=== PATIENT | female | born 1935 | race African-American/Black ===

== ENCOUNTER 2017-08-18 10:27 | Emergency (ER) | payer OTHER ==
[2017-08-18 10:49] VITALS: BP 138/80; PULSE 98; TEMP 97.9; BMI 23.8
--- NOTE | 2017-08-18 11:18 | PDOC ---
History of Present Illness - General Chief Complaint: Injury Stated Complaint: RT ANKLE PAIN Time Seen by Provider: 08/18/17 10:53 History Source: Patient Exam Limitations: No Limitations - History of Present Illness Initial Comments: 08/18/17 11:13 Patient came with daughter for evaluation of right ankle and leg pain. States twisted ankle 2 days ago. Was seen at Dr. Le's office, x-ray was taken and noted to have a distal fibular fracture. Was instructed to follow-up with orthopedist whom they called and were given appointment for 2 weeks. 08/18/17 12:08 Occurred: reports: yesterday Severity: reports: mild, moderate Pain Location: reports: none Method of Injury: Yes: unknown Modifying Factors: improves with: None, cold therapy Loss of Consciousness: no loss of consciousness Associated Symptoms (Fall): denies symptoms Past History - Travel Traveled outside of the country in the last 30 days: No Close contact w/someone who was outside of country & ill: No - Past Medical History Allergies/Adverse Reactions: Allergies Allergy/AdvReac Type Severity Reaction Status Date / Time No Known Drug Allergies Allergy Verified 08/18/17 10:44 Home Medications: Ambulatory Orders Aspirin Coated [Ecotrin] 81 mg PO DAILY 04/16/12 Amlodipine/Valsartan/Hcthiazid [Ztozn-Jvggw-Tzor 10-160-25 mg] 1 each PO DAILY 07/18/15 Oxybutynin Chloride 5 mg PO DAILY 07/18/15 Cholecalciferol (Vitamin D3) [Vitamin D] 1,000 unit PO DAILY 11/14/15 Cyanocobalamin [Vitamin B12 -] 1,000 mcg PO DAILY 11/14/15 Memantine HCl [Namenda Xr] 28 mg PO HS 11/14/15 Anemia: No Asthma: No Cancer: No Cardiac Disorders: No CVA: No COPD: No CHF: No Dementia: No Diabetes: No GI Disorders: No Disorders: No HTN: Yes Hypercholesterolemia: No Liver Disease: No Seizures: No Thyroid Disease: No - Immunization History Immunization Up to Date: Yes (FLU) - Suicide/Smoking/Psychosocial Hx Smoking Status: No Smoking History: Never smoked Number of Cigarettes Smoked Daily: 0 Hx Alcohol Use: No Drug/Substance Use Hx: No Substance Use Type: None Trauma Specific PMHX - Complaint Specific PMHX Back Injury: No Neck Injury: No Review of Systems - Review of Systems Able to Perform ROS?: Yes Is the patient limited Cambodian proficient: Yes Constitutional: Yes: Symptoms Reported, See HPI, Malaise HEENTM: No: Symptoms Reported Musculoskeletal: Yes: Symptoms Reported, See HPI, Joint Pain, Joint Swelling, Joint Stiffness Integumentary: Yes: Symptoms Reported Neurological: Yes: Symptoms reported, See HPI. No: Numbness All Other Systems: Reviewed and Negative *Physical Exam - Vital Signs Last Vital Signs Temp Pulse Resp BP Pulse Ox 97.9 F 98 H 17 138/80 99 08/18/17 10:44 08/18/17 10:44 08/18/17 10:44 08/18/17 10:44 08/18/17 10:44 - Physical Exam General Appearance: Yes: Nourished, Appropriately Dressed, Apparent Distress HEENT: positive: JOSSY, Normal ENT Inspection, TMs Normal, Pharynx Normal Neck: positive: Supple. negative: Tender, Lymphadenopathy (R) Respiratory/Chest: positive: Lungs Clear, Normal Breath Sounds Gastrointestinal/Abdominal: positive: Soft. negative: Normal Bowel Sounds Musculoskeletal: positive: Normal Inspection, Decreased Range of Motion Extremity: positive: Normal Capillary Refill, Normal Range of Motion, Tender, Swelling Integumentary: positive: Swelling, Ecchymosis, Bruising Neurologic: positive: electroless plater II-XII NML intact, Fully Oriented, Alert, Normal Mood/ Affect, Normal Response, Motor Strength 5/5 ED Treatment Course - RADIOLOGY Radiology Studies Ordered: Category Date Time Status ANKLE-RIGHT [RAD] Stat Radiology 08/18/17 11:09 Ordered Progress Note - Progress Note Progress Note: X-ray reveals distal fibular fracture with what seems to be some changes in the ankle mortise. Case was discussed with Dr. Medina who for further treatment including casting and walker instructions. Patient was discharged here in via wheelchair was taken to Dr. Marcum office for definitive *DC/Admit/Observation/Transfer Diagnosis at time of Disposition: Fracture of distal end of fibula Qualifiers: Encounter type: initial encounter Fracture type: closed Fracture morphology: other fracture Laterality: right Qualified Code(s): S82.831A - Other fracture of upper and lower end of right fibula, initial encounter for closed fracture - Discharge Dispostion Disposition: HOME Condition at time of disposition: Stable Admit: No - Referrals Referrals: Mimi,Amanuel, MD [Primary Care Provider] - Zachary Medina MD [Staff Physician] - - Patient Instructions Printed Discharge Instructions: DI for Ankle Fracture Additional Instructions: Avoid heavy lifting or exercise until pain and swelling is resolved or until further directed Keep area highly elevated to reduce swelling Use splints/Jose Angel wrap as directed Followup with orthopedist when directed if significantly improved may wait one week for followup with orthopedist May use ibuprofen 2-200 mg tablets every 6 hours as needed for pain - Post Discharge Activity
== END 2017-08-18 12:08 | disposition home or self-care (01) ==
LOC: JERFT 10:27
PROC: 2W3QX1Z Immobilization of Right Lower Leg using Splint (ICD-10-PCS; principal; 2017-08-18)
DX: S82.831D Other fracture of upper and lower end of right fibula, subsequent encounter for closed fracture with routine healing (principal); X50.1XXD Overexertion from prolonged static or awkward postures, subsequent encounter
CPT/HCPCS: 73610-TC-RT-FY; 99281-25

== ENCOUNTER 2018-07-05 00:23 | Inpatient (IN) | payer OTHER ==
[2018-07-05 00:53] VITALS: BMI 26.6
--- NOTE | 2018-07-05 01:06 | PDOC ---
Attending Attestation - HPI HPI: 07/05/18 01:42 The patient is a 82 year old female, with a significant past medical history of hypertension, rheumatoid arthritis, who presents to the emergency department with, a week of a cough and intermittent fevers. She denies recent headache or dizziness. She denies recent nausea, vomit, diarrhea or constipation. She denies recent dysuria, frequency, urgency or hematuria. She denies recent chest pain or shortness of breath. Allergies: NKDA Primary Care Physician: Dr. Le - Physicial Exam PE: 07/05/18 01:43 Agree with resident exam. <Nadia Haskins - Last Filed: 07/05/18 01:42> - Resident Resident Name: Lino Lamar) - ED Attending Attestation I have performed the following: I have examined & evaluated the patient, The case was reviewed & discussed with the resident, I agree w/resident's findings & plan - Critical Care Time Total Critical Care Time: 40 Critical Care Statement: The care of this patient involved high complexity decision making to prevent further life threatening deterioration of the patient 's condition and/or to evaluate & treat vital organ system(s) failure or risk of failure. - Medical Decision Making 07/05/18 03:37 82-year-old female with fevers and cough Labs consistent with urinary tract infection Patient will be admitted for sepsis, IV antibiotics initiated as well as IV fluids <Esthela Flores - Last Filed: 07/05/18 03:43> Attestations - Attestations 07/05/18 01:43 Documentation prepared by Nadia Haskins, acting as medical lab tech instructor for Esthela Flores DO. <Nadia Haskins - Last Filed: 07/05/18 01:42>
[2018-07-05] MEDS ORDERED: ACETAMINOPHEN 1000 MG/100 ML VIAL (NON FORMULARY) IVPB ONE (01:09)
[2018-07-05] MEDS ORDERED: ACETAMINOPHEN INJECTION 100 ML IVPB ONE (01:27)
[2018-07-05 01:35] LABS: VENOUS PH 7.39 (7.32-7.42); VENOUS PO2 13.4 mmHg (28-48)
[2018-07-05 01:36] LABS: BASO % 1.2 % (0-2.0); EOS % 3.1 % (0-4.5); HEMATOCRIT 34.1 % (32.4-45.2); HEMOGLOBIN 11.9 GM/dL (10.7-15.3); LYMPH % 24.5 % (8-40); MCH 34.2 pg (25.7-33.7); MCHC 34.8 g/dl (32.0-36.0); MEAN CELL VOLUME 98.5 fl (80-96); MEAN PLT VOLUME 8.4 fl (7.5-11.1); MONO % 7.4 % (3.8-10.2); NEUT % 63.8 % (42.8-82.8); PLATELET COUNT 304 K/MM3 (134-434); RBC 3.47 M/mm3 (3.60-5.2); RDW 15.4 % (11.6-15.6); WHITE BLOOD COUNT 9.8 K/mm3 (4.0-10.0)
[2018-07-05 01:47] LABS: INR 1.04 (0.83-1.09); PROTHROMBIN TIME (PATIENT) 12.3 SEC (9.7-13.0)
[2018-07-05 01:50] LABS: ACTIVATED PTT 31.9 SECONDS (25.2-36.5)
[2018-07-05 01:55] LABS: URINE APPEARANCE CLEAR; URINE BILIRUBIN NEGATIVE (<2.0 mg/dL); URINE COLOR LTYELLOW; URINE GLUCOSE (UA) NEGATIVE (NEGATIVE); URINE KETONE NEGATIVE (NEGATIVE); URINE LEUK ESTERASE 3+ (NEGATIVE); URINE NITRITE NEGATIVE (NEGATIVE); URINE PROTEIN NEGATIVE (NEGATIVE); URINE UROBILINOGEN NEGATIVE mg/dL (0.2-1.0)
[2018-07-05 01:55] LABS: ALBUMIN 3.5 g/dl (3.4-5.0); ALK PHOS 75 U/L (45-117); ANION GAP 3 MMOL/L (8-16); BILIRUBIN,TOTAL 0.3 mg/dL (0.2-1); BLOOD UREA NITROGEN 16 mg/dL (7-18); CALCIUM 9.4 mg/dL (8.5-10.1); CHLORIDE 98 mmol/L (98-107); CO2 34 mmol/L (21-32); CREATININE 1.3 mg/dL (0.55-1.3); GLUCOSE,RANDOM 97 mg/dL (74-106); POTASSIUM 4.4 mmol/L (3.5-5.1); SGOT/AST 20 U/L (15-37); SGPT/ALT 32 U/L (13-61); SODIUM 135 mmol/L (136-145); TOT PROT 7.6 g/dl (6.4-8.2)
[2018-07-05 02:06] LABS: EPI CELLS RARE /HPF (FEW); URINE HYALINE CAST 1 /lpf
--- NOTE | 2018-07-05 02:16 | PDOC ---
History of Present Illness - General Chief Complaint: SIRS, Suspected/Possible Stated Complaint: FEVER/WEAKNESS Time Seen by Provider: 07/05/18 01:05 History Source: Patient, Family Exam Limitations: No Limitations - History of Present Illness Initial Comments: 07/05/18 02:03 The patient is an 82F with a PMH of HTN, mild dementia, and RA who presents to the ER with complaints of fever. The patient states that she's had intermittent fevers x 1.5 weeks with a cough. She denies CP, SOB, nausea, vomiting, dyusuria , hematuria, chills. She denies any other symptoms. Past History - Past Medical History Allergies/Adverse Reactions: Allergies Allergy/AdvReac Type Severity Reaction Status Date / Time No Known Drug Allergies Allergy Intermediate Verified 07/05/18 01:55 Home Medications: Ambulatory Orders Aspirin Coated [Ecotrin] 81 mg PO DAILY 04/16/12 Amlodipine/Valsartan/Hcthiazid [Cqwed-Nizbi-Fvwp 10-160-25 mg] 1 each PO DAILY 07/18/15 Cholecalciferol (Vitamin D3) [Vitamin D] 1,000 unit PO DAILY 11/14/15 Cyanocobalamin [Vitamin B12 -] 1,000 mcg PO DAILY 11/14/15 Donepezil HCl [Aricept -] 5 mg PO DAILY 12/04/17 Imipramine HCl 50 mg PO DAILY 12/04/17 Meloxicam 15 mg PO DAILY 12/04/17 Methotrexate Sodium [Methotrexate] 20 mg PO WEEKLY 12/04/17 Atorvastatin Ca [Lipitor] 10 mg PO HS 07/05/18 Clopidogrel Bisulfate [Plavix] 75 mg PO DAILY 07/05/18 Losartan Potassium 25 mg PO DAILY 07/05/18 Metoprolol Tartrate 25 mg PO DAILY 07/05/18 Oxybutynin [Oxytrol] 1 each TD DAILY 07/05/18 Anemia: No Asthma: No Cancer: No Cardiac Disorders: No CVA: No COPD: No CHF: No Dementia: No Diabetes: No GI Disorders: No Disorders: No HTN: Yes Hypercholesterolemia: No Liver Disease: No Seizures: No Thyroid Disease: No - Immunization History Immunization Up to Date: Yes (FLU) - Suicide/Smoking/Psychosocial Hx Smoking Status: No Smoking History: Unknown if ever smoked Have you smoked in the past 12 months: No Number of Cigarettes Smoked Daily: 0 Hx Alcohol Use: No Drug/Substance Use Hx: No Substance Use Type: None Review of Systems - Review of Systems Able to Perform ROS?: Yes Comments:: 07/05/18 02:24 GENERAL/CONSTITUTIONAL: Positive for fever. No chills. No weakness. HEAD, EYES, EARS, NOSE AND THROAT: No change in vision. No ear pain or discharge. No sore throat. CARDIOVASCULAR: No chest pain, palpitations, or lightheadedness. RESPIRATORY: Positive for cough. No wheezing, shortness of breath, or hemoptysis. GASTROINTESTINAL: No nausea, vomiting, diarrhea, constipation, or abdominal pain. GENITOURINARY: No dysuria, frequency, hematuria, or change in urination. MUSCULOSKELETAL: No joint or muscle swelling or pain. No neck or back pain. SKIN: No rash or lesions. NEUROLOGIC: No headache, numbness, tingling, focal weakness, loss of consciousness, or change in strength/sensation. Is the patient limited Slovak proficient: No *Physical Exam - Vital Signs Last Vital Signs Temp Pulse Resp BP Pulse Ox 99.1 F 109 H 16 127/88 99 07/05/18 00:39 07/05/18 00:39 07/05/18 00:39 07/05/18 00:39 07/05/18 00:39 - Physical Exam Comments: 07/05/18 02:32 GENERAL: Well developed, well nourished. Awake and alert. No acute distress. HEENT: Normocephalic, atraumatic. Hearing grossly normal. Moist mucous membranes. PERRLA, EOMI. No conjunctival pallor. NECK: Supple. Full ROM. No JVD. CARDIOVASCULAR: Regular rate and rhythm. No murmurs, rubs, or gallops. PULMONARY: No evidence of respiratory distress. Lungs clear to auscultation bilaterally. No wheezing, rales or rhonchi. ABDOMINAL: Soft. Non-tender. Non-distended. No rebound or guarding. GENITOURINARY: No CVA tenderness bilaterally. MUSCULOSKELETAL: Normal range of motion at all joints. No bony deformities or tenderness. EXTREMITIES: No cyanosis. No clubbing. No edema. No calf tenderness or swelling. SKIN: Warm and dry. Normal capillary refill. No rashes. No jaundice. NEUROLOGICAL: Alert, awake, appropriate. Cranial nerves 2-12 grossly intact. Normal speech. PSYCHIATRIC: Cooperative. Good eye contact. Appropriate mood and affect. Moderate Sedation - Procedure Monitoring Vital Signs: Procedure Monitoring Vital Signs Temperature 99.1 F 07/05/18 00:39 Pulse Rate 109 H 07/05/18 00:39 Respiratory Rate 16 07/05/18 00:39 Blood Pressure 127/88 07/05/18 00:39 O2 Sat by Pulse Oximetry (%) 99 07/05/18 00:39 ED Treatment Course - LABORATORY CBC & Chemistry Diagram: 07/05/18 01:13 07/05/18 01:13 - ADDITIONAL ORDERS Additional order review: Laboratory Results 07/05/18 07/05/18 07/05/18 01:13 01:13 01:13 PT with INR INR PTT (Actin FS) VBG pH POC VBG pCO2 POC VBG pO2 Mixed VBG HCO3 Sodium 135 L Potassium 4.4 Chloride 98 Carbon Dioxide 34 H Anion Gap 3 L BUN 16 Creatinine 1.3 Creat Clearance w eGFR 39.41 Random Glucose 97 Lactic Acid 1.3 Calcium 9.4 Total Bilirubin 0.3 AST 20 ALT 32 Alkaline Phosphatase 75 Troponin I < 0.02 Total Protein 7.6 Albumin 3.5 07/05/18 07/05/18 01:13 01:13 PT with INR 12.30 INR 1.04 PTT (Actin FS) 31.9 VBG pH 7.39 POC VBG pCO2 54.0 H POC VBG pO2 13.4 L* Mixed VBG HCO3 32.2 H Sodium Potassium Chloride Carbon Dioxide Anion Gap BUN Creatinine Creat Clearance w eGFR Random Glucose Lactic Acid Calcium Total Bilirubin AST ALT Alkaline Phosphatase Troponin I Total Protein Albumin 07/05/18 01:13 RBC 3.47 L MCV 98.5 H MCHC 34.8 RDW 15.4 D MPV 8.4 Neutrophils % 63.8 D Lymphocytes % 24.5 D Monocytes % 7.4 Eosinophils % 3.1 Basophils % 1.2 - RADIOLOGY Radiology Studies Ordered: Category Date Time Status CHEST X-RAY PORTABLE* [RAD] Stat Radiology 07/05/18 01:08 Taken - Medications Given in the ED: ED Medications Discontinued Medications Generic Name Dose Route Start Last Admin Trade Name Freq PRN Reason Stop Dose Admin Acetaminophen 1,000 mg 07/05/18 01:09 07/05/18 01:27 Ofirmev Injection - IVPB 07/05/18 01:10 1,000 mg ONCE ONE Administration Medical Decision Making - Medical Decision Making 07/05/18 02:32 The patient is an 82F with a PMH of HTN who presents to the ER with 1 week of fever and cough concerning for PNA vs other infectious source. Pt noted to be febrile and tachycardic, 2/4 SIRS criteria. Giving IV tylenol. Pt found to have UTI. Will give abx. Hospitalist microblogged for admission. *DC/Admit/Observation/Transfer Diagnosis at time of Disposition: Sepsis Qualifiers: Sepsis type: sepsis due to unspecified organism Qualified Code(s): A41.9 - Sepsis, unspecified organism UTI (urinary tract infection) Qualifiers: Urinary tract infection type: site unspecified Hematuria presence: without hematuria Qualified Code(s): N39.0 - Urinary tract infection, site not specified - Discharge Dispostion Condition at time of disposition: Guarded Decision to Admit order: Yes - Referrals Referrals: Amanuel Le MD [Primary Care Provider] - - Patient Instructions - Post Discharge Activity
[2018-07-05] MEDS ORDERED: CEFTRIAXONE 1,000 MG in DEXTROSE 5%-WATER - 50 ML IVPB ONE (02:33)
[2018-07-05] MEDS ORDERED: CEFTRIAXONE 1 GM/50 ML BAG ONE ×2 (02:41→03:13)
[2018-07-05] MEDS ORDERED: SODIUM CHLORIDE 500 ML IV STA (02:50)
--- NOTE | 2018-07-05 02:54 | PN ---
Teaching Attending Note Name of Resident: Gerardo Frias ATTENDING PHYSICIAN STATEMENT I saw and evaluated the patient. I reviewed the resident's note and discussed the case with the resident. I agree with the resident's findings and plan as documented. SUBJECTIVE: Seen and examined; please refer to resident note for further historical documentation. Briefly, this is a 82 y/o female presenting to the ER with a CC of cough and intermittent fevers. She has a full bladder when I saw her which caused some SP discomfort to palpation but otherwise she denies any urinary symptoms. She tells me that she has had the cough/malaise/subjective fevers for several days and that nothing makes them better or worse, hasn't seen any other providers for this, and no recent antibiotics. She is febrile with a stable BP in the ER but did have some tachycardia noted that improved with hydration. Due to being SIRS+ with likely UTI and given her comorbidities she will be brought to the medicine service on observation. 10 sys ROS done and negative aside from HPI PMH (HTN, NSTEMI 11/2017 s/p PCI, Dementia, OAB, Rheumatoid Arthritis), PSH, Social hx, Family hx reviewed Medication reconciliation pending OBJECTIVE: VS, labs, imaging reviewed NAD, AAO, resting in bed on RA in good spirits NC AT [facility] NT [place] +BS; had some suprapubic discomfort but she told be it was because she had to urinate Tachycardic with regular rhythm, no mgr Lungs CTAB, w/ sym exp CN2-12 wnl, no fnd Normal mood, appropriate affect ASSESSMENT AND PLAN: Patient presents with cough and intermittent fevers found to be SIRS+ (tachy, febrile) with positive UA but questionably no urinary symptoms. She will be placed on observation and monitored. 1) SIRS+ -UA indicates potential urinary source but must be mindful of her URI sx; followup viral swab and was treated empirically with ceftriaxone (given 2g as on MTX). Benign lung exam and satting 99% on RA. -Empiric hydration; will discuss with her PCP if they have any echo on file and will be gentle in the interem, but she does look dry. -Followup cultures; continue empiric tx. Checking ESR/CRP 2) CAD w/ hx NSTEMI s/p cath 11/2017 -Discuss with primary service regarding obtaining old records; weren't available overnight. -Continue home meds (placvix, ASA, BB, statin) -No justin cardiac sx at this juncture 3) Hx RA -Continue home meds 4) HTN -Continue home meds; keep <160. 5) OAB -Continue oxybutynin 6) Dementia -Continue Aricept 7) Reduced GFR -Chronic; trend BMP 8) Macrocytosis -Check B12/folate FENA -isotonic @75 -PRN replete -Cardiac diet -As tolerated
--- NOTE | 2018-07-05 03:05 | HP ---
CHIEF COMPLAINT: cough and fever PCP:Dr. Le Glass Vial Filler: Dr. Lam Architectural Examiner: Dr. Bennie Hummel HISTORY OF PRESENT ILLNESS: Patient is an 82 yo F with a PMHx of HTN, a "muscle disease", [place] s/p 2 stents(), presented because of a cough with white sputum production and intermittent fevers over the last week. She also complains of chills and a stuffy nose that started the same time. She denies sick contacts and recent travel. She lives with her daughter. She denies urinary symptoms except for her chronic urinary incontinence. Daughter says patient also has not been drinking water and thinks her mother is dehydrated. Patient denies nausea, vomiting, sob, headaches, chest pain, numbness, tingling, diarrhea, decrease in appetite. ER course was notable for: (1) 101.6 temp, tachy 112 (2) UA: 3+ LE, 57 WBC Recent Travel: denies PAST MEDICAL HISTORY: per hpi Social History: Smoking: denies Alcohol: denies Drugs: denies Family History: Allergies No Known Drug Allergies Allergy (Intermediate, Verified 07/05/18 01:55) HOME MEDICATIONS: Home Medications Medication Instructions Recorded Aspirin Coated [Ecotrin] 81 mg PO DAILY 04/16/12 Amlodipine/Valsartan/Hcthiazid 1 each PO DAILY 07/18/15 [Bknhj-Xyopn-Movm 10-160-25 mg] Oxybutynin Chloride 5 mg PO DAILY 07/18/15 Cholecalciferol (Vitamin D3) 1,000 unit PO DAILY 11/14/15 [Vitamin D] Cyanocobalamin [Vitamin B12 -] 1,000 mcg PO DAILY 11/14/15 Donepezil HCl [Aricept -] 5 mg PO DAILY 12/04/17 Imipramine HCl 50 mg PO DAILY 12/04/17 Meloxicam 15 mg PO DAILY 12/04/17 Methotrexate Sodium [Methotrexate] 20 mg PO WEEKLY 12/04/17 Amlodipine Besylate 5 mg PO DAILY 07/05/18 Atorvastatin Ca [Lipitor] 10 mg PO HS 07/05/18 Clopidogrel Bisulfate [Plavix] 75 mg PO DAILY 07/05/18 Imipramine HCl [Tofranil] 10 mg PO DAILY 07/05/18 Losartan Potassium 25 mg PO DAILY 07/05/18 Metoprolol Tartrate 25 mg PO DAILY 07/05/18 Oxybutynin [Oxytrol] 1 each TD DAILY 07/05/18 REVIEW OF SYSTEMS CONSTITUTIONAL: fevers, chills Absent: diaphoresis, generalized weakness, malaise, loss of appetite, weight change HEENT: nasal congestion, nasal congestion, Absent: rhinorrhea, throat pain, throat swelling, difficulty swallowing, mouth swelling, ear pain, eye pain, visual changes CARDIOVASCULAR: Absent: chest pain, syncope, palpitations, irregular heart rate, lightheadedness , peripheral edema RESPIRATORY: cough Absent:shortness of breath, dyspnea with exertion, orthopnea, wheezing, stridor , hemoptysis GASTROINTESTINAL: Absent: abdominal pain, abdominal distension, nausea, vomiting, diarrhea, constipation, melena, hematochezia GENITOURINARY: frequency (chronic) Absent: dysuria, frequency, urgency, hesitancy, hematuria, flank pain, genital pain MUSCULOSKELETAL: Absent: myalgia, arthralgia, joint swelling, back pain, neck pain NEUROLOGIC: dizziness Absent: headache, focal weakness or paresthesias, unsteady gait, seizure, mental status changes, bladder or bowel incontinence PSYCHIATRIC: Absent: anxiety, depression, suicidal or homicidal ideation, hallucinations. PHYSICAL EXAMINATION Vital Signs - 24 hr 07/05/18 07/05/18 00:39 02:01 Temperature 99.1 F 101.6 F H Pulse Rate 109 H 112 H Respiratory 16 20 Rate Blood Pressure 127/88 130/88 O2 Sat by Pulse 99 99 Oximetry (%) GENERAL: a/o x 3, in NAD EYES: Pupils equal, round and reactive to light, extraocular movements intact, sclera anicteric, conjunctiva clear. EARS, NOSE, THROAT: Ears normal, nares patent, oropharynx clear without exudates. Dry mucous membranes NECK: supple without lymphadenopathy, JVD, or masses. LUNGS: Breath sounds equal, clear to auscultation bilaterally. No wheezes, and no crackles. HEART: RRR, no murmurs appreciated ABDOMEN: Soft, nontender, not distended, normoactive bowel sounds, no guarding, no rebound, no masses. LOWER EXTREMITIES: 2+ pulses, No peripheral edema. NEUROLOGICAL: Cranial nerves II-XII intact. Normal speech. SKIN: decreased turgor Laboratory Results - last 24 hr 07/05/18 07/05/18 07/05/18 01:13 01:13 01:13 WBC 9.8 RBC 3.47 L Hgb 11.9 Hct 34.1 MCV 98.5 H MCH 34.2 H MCHC 34.8 RDW 15.4 D Plt Count 304 MPV 8.4 Absolute Neuts (auto) 6.3 Neutrophils % 63.8 D Lymphocytes % 24.5 D Monocytes % 7.4 Eosinophils % 3.1 Basophils % 1.2 Nucleated RBC % 0 PT with INR 12.30 INR 1.04 PTT (Actin FS) 31.9 VBG pH 7.39 POC VBG pCO2 54.0 H POC VBG pO2 13.4 L* Mixed VBG HCO3 32.2 H Sodium Potassium Chloride Carbon Dioxide Anion Gap BUN Creatinine Creat Clearance w eGFR Random Glucose Lactic Acid Calcium Total Bilirubin AST ALT Alkaline Phosphatase Troponin I Total Protein Albumin Urine Color Urine Appearance Urine pH Ur Specific Brady Urine Protein Urine Glucose (UA) Urine Ketones Urine Blood Urine Nitrite Urine Bilirubin Urine Urobilinogen Ur Leukocyte Esterase Urine WBC (Auto) Urine RBC (Auto) Ur Epithelial Cells Hyaline Casts Influenza A (Rapid) Influenza B (Rapid) 07/05/18 07/05/18 07/05/18 01:13 01:13 01:13 WBC RBC Hgb Hct MCV MCH MCHC RDW Plt Count MPV Absolute Neuts (auto) Neutrophils % Lymphocytes % Monocytes % Eosinophils % Basophils % Nucleated RBC % PT with INR INR PTT (Actin FS) VBG pH POC VBG pCO2 POC VBG pO2 Mixed VBG HCO3 Sodium 135 L Potassium 4.4 Chloride 98 Carbon Dioxide 34 H Anion Gap 3 L BUN 16 Creatinine 1.3 Creat Clearance w eGFR 39.41 Random Glucose 97 Lactic Acid 1.3 Calcium 9.4 Total Bilirubin 0.3 AST 20 ALT 32 Alkaline Phosphatase 75 Troponin I < 0.02 Total Protein 7.6 Albumin 3.5 Urine Color Urine Appearance Urine pH Ur Specific Brady Urine Protein Urine Glucose (UA) Urine Ketones Urine Blood Urine Nitrite Urine Bilirubin Urine Urobilinogen Ur Leukocyte Esterase Urine WBC (Auto) Urine RBC (Auto) Ur Epithelial Cells Hyaline Casts Influenza A (Rapid) Influenza B (Rapid) 07/05/18 07/05/18 01:13 01:45 WBC RBC Hgb Hct MCV MCH MCHC RDW Plt Count MPV Absolute Neuts (auto) Neutrophils % Lymphocytes % Monocytes % Eosinophils % Basophils % Nucleated RBC % PT with INR INR PTT (Actin FS) VBG pH POC VBG pCO2 POC VBG pO2 Mixed VBG HCO3 Sodium Potassium Chloride Carbon Dioxide Anion Gap BUN Creatinine Creat Clearance w eGFR Random Glucose Lactic Acid Calcium Total Bilirubin AST ALT Alkaline Phosphatase Troponin I Total Protein Albumin Urine Color Ltyellow Urine Appearance Clear Urine pH 7.0 Ur Specific Brady 1.012 Urine Protein Negative Urine Glucose (UA) Negative Urine Ketones Negative Urine Blood 1+ H Urine Nitrite Negative Urine Bilirubin Negative Urine Urobilinogen Negative Ur Leukocyte Esterase 3+ H Urine WBC (Auto) 57 Urine RBC (Auto) 22 Ur Epithelial Cells Rare Hyaline Casts 1 Influenza A (Rapid) Negative Influenza B (Rapid) Negative ASSESSMENT/PLAN: 82 yo F with a PMHx of HTN, a "muscle disease", [place] s/p 2 stents(12/07), presented with cough and fever and found to be septic. #Sepsis 2/2 to UTI + URI -101.6 temp, tachy 112 -UA: 3+ LE, 57 WBC -IV abx: 2gm Ceftriaxone in ED -Cont. 1gm Ceftriaxone daily -Bcx, Ucx, sputum cx, respiratory vital panel -IV fluids: NS 500ml bolus. -75ml/hour NS -Tylenol PRN for fever #CKD -at baseline #CAD/HTN -cont. Plavix 75mg -cont Amlodipine 5mg -Cont. Losartan 25 -Cont. Toprol 25 -med rec patient #RA -stable -med rec to check if patient on methotrexate #Urinary incontinence -cont. home oxybutynin #FEN -NS @75 -monitor -sodium restricted #DVT -heparin sq dispo: med-surge Visit type - Emergency Visit Emergency Visit: Yes ED Registration Date: 07/05/18 Care time: The patient presented to the Emergency Department on the above date and was hospitalized for further evaluation of their emergent condition. - New Patient This patient is new to me today: Yes Date on this admission: 07/06/18 - Critical Care Critical Care patient: No
[2018-07-05] MEDS: SODIUM CHLORIDE 1,000 ML IV SCH (03:12)
[2018-07-05] MEDS ORDERED: CEFTRIAXONE 1 GM in DEXTROSE 5%-WATER - 50 ML IVPB ONE (03:15)
[2018-07-05] MEDS ORDERED: ACETAMINOPHEN 325 MG TABLET (FP) PO PRN (03:18)
[2018-07-05 07:22] LABS: BASO % 0.7 % (0-2.0); EOS % 2.7 % (0-4.5); HEMATOCRIT 30.3 % (32.4-45.2); HEMOGLOBIN 10.4 GM/dL (10.7-15.3); LYMPH % 27.5 % (8-40); MCH 33.7 pg (25.7-33.7); MCHC 34.2 g/dl (32.0-36.0); MEAN CELL VOLUME 98.4 fl (80-96); MEAN PLT VOLUME 8.2 fl (7.5-11.1); MONO % 8.9 % (3.8-10.2); NEUT % 60.2 % (42.8-82.8); PLATELET COUNT 275 K/MM3 (134-434); RBC 3.08 M/mm3 (3.60-5.2); RDW 15.3 % (11.6-15.6); WHITE BLOOD COUNT 8.5 K/mm3 (4.0-10.0)
[2018-07-05 07:52] LABS: ALK PHOS 60 U/L (45-117); ANION GAP 4 MMOL/L (8-16); BILIRUBIN,TOTAL 0.3 mg/dL (0.2-1); BLOOD UREA NITROGEN 14 mg/dL (7-18); CALCIUM 8.6 mg/dL (8.5-10.1); CHLORIDE 105 mmol/L (98-107); CO2 31 mmol/L (21-32); CREATININE 1.1 mg/dL (0.55-1.3); GLUCOSE,RANDOM 90 mg/dL (74-106); MAGNESIUM 2.3 mg/dL (1.8-2.4); POTASSIUM 3.7 mmol/L (3.5-5.1); SGOT/AST 15 U/L (15-37); SGPT/ALT 23 U/L (13-61); SODIUM 139 mmol/L (136-145); TOT PROT 6.4 g/dl (6.4-8.2)
[2018-07-05 09:37] LABS: ERYTHROCYTE SEDIMENTATION RATE 40 mm/hr (0-30)
--- NOTE | 2018-07-05 09:52 | EKG ---
Test Reason : Blood Pressure : / mmHG Vent. Rate : 095 BPM Atrial Rate : 095 BPM P-R Int : 152 ms QRS Dur : 072 ms QT Int : 340 ms P-R-T Axes : 043 -21 067 degrees QTc Int : 427 ms NORMAL SINUS RHYTHM NONSPECIFIC T WAVE ABNORMALITY ABNORMAL ECG WHEN COMPARED WITH ECG OF 04-DEC-2017 12:49, NONSPECIFIC T WAVE ABNORMALITY HAS REPLACED INVERTED T WAVES IN LATERAL LEADS Confirmed by FAROOQ TESFAYE, ALEKSEY ([id number]) on 07/05/2018 9:51:28 AM Referred By: Confirmed By:ALEKSEY TRIVEDI MD
[2018-07-05] MEDS ORDERED: OXYBUTYNIN TD SCH (10:00)
[2018-07-05] MEDS: LOSARTAN POTASSIUM 25 MG TABLET PO SCH (10:15)
[2018-07-05] MEDS: ASPIRIN COATED 81 MG TABLET.EC PO SCH (10:16)
[2018-07-05] MEDS: CHOLECALCIFEROL (VITAMIN D3) 1,000 UNIT TABLET (FP) PO SCH (10:16)
[2018-07-05] MEDS: METOPROLOL TARTRATE 25 MG TABLET (FP) PO SCH (10:16)
[2018-07-05] MEDS: amLODIPine BESYLATE 5 MG TABLET (FP) PO SCH (10:16)
[2018-07-05] MEDS: CLOPIDOGREL BISULFATE 75 MG TABLET (FP) PO SCH (10:16)
[2018-07-05] MEDS: OXYBUTYNIN CHLORIDE 5 MG TABLET PO SCH (10:16)
[2018-07-05] MEDS: HEPARIN NA (PORCINE) 5,000 UNITS/ML 1ML VIAL SQ SCH ×2 (10:16→21:42)
[2018-07-05] MEDS: ALLOPURINOL 100 MG TABLET (FP) PO SCH (10:16)
[2018-07-05] MEDS: DONEPEZIL HCL 5 MG TABLET (FP) PO SCH (10:18)
--- NOTE | 2018-07-05 10:40 | PN ---
Teaching Attending Note Name of Resident: Denny Trivedi ATTENDING PHYSICIAN STATEMENT I saw and evaluated the patient. I reviewed the resident's note and discussed the case with the resident. I agree with the resident's findings and plan as documented with exceptions below. SUBJECTIVE: Patient seen and examined. reports cough with whitish sputum, sick contact, daughter with recent 'cold'. no abdominal or urinary symptoms. OBJECTIVE: Vital Signs Period Temp Pulse Resp BP Sys/Pereira Pulse Ox Last 24 Hr 98.4 F-101.6 F 89-112 16-20 127-146/86-88 99-99 Intake & Output 07/02/18 07/03/18 07/04/18 07/05/18 23:59 23:59 23:59 23:59 Weight 150 lb 2.157 oz General: sitting in bed in no acute distress Chest: CTAB, no rales or wheezing HEENT: no pharyngeal erythema or tonsillar enlargement noted Abdomen: soft, NT, no suprapubic or CVA tenderness Extremities: no edema Home Medications Medication Instructions Recorded Aspirin Coated [Ecotrin] 81 mg PO DAILY 04/16/12 Amlodipine/Valsartan/Hcthiazid 1 each PO DAILY 07/18/15 [Qnkeg-Kakyv-Rinr 10-160-25 mg] Cholecalciferol (Vitamin D3) 1,000 unit PO DAILY 11/14/15 [Vitamin D] Cyanocobalamin [Vitamin B12 -] 1,000 mcg PO DAILY 11/14/15 Donepezil HCl [Aricept -] 5 mg PO DAILY 12/04/17 Imipramine HCl 50 mg PO DAILY 12/04/17 Meloxicam 15 mg PO DAILY 12/04/17 Methotrexate Sodium [Methotrexate] 20 mg PO WEEKLY 12/04/17 Allopurinol [Zyloprim -] 100 mg PO DAILY 07/05/18 Atorvastatin Ca [Lipitor] 10 mg PO HS 07/05/18 Clopidogrel Bisulfate [Plavix] 75 mg PO DAILY 07/05/18 Losartan Potassium 25 mg PO DAILY 07/05/18 Metoprolol Tartrate 25 mg PO DAILY 07/05/18 Oxybutynin [Oxytrol] 1 each TD DAILY 07/05/18 Active Medications Acetaminophen (Tylenol -) 650 mg PO Q6H PRN PRN Reason: FEVER Allopurinol (Zyloprim -) 100 mg PO DAILY [facility] Last Admin: 07/05/18 10:16 Dose: 100 mg Amlodipine Besylate (Norvasc -) 5 mg PO DAILY [facility] [place] Last Admin: 07/05/18 10:16 Dose: 5 mg Aspirin (Ecotrin -) 81 mg PO DAILY [facility] [place] Last Admin: 07/05/18 10:16 Dose: 81 mg Cholecalciferol (Vitamin D3 -) 1,000 unit PO DAILY [facility] [place] Last Admin: 07/05/18 10:16 Dose: 1,000 unit Clopidogrel Bisulfate (Plavix -) 75 mg PO DAILY [facility] [place] Last Admin: 07/05/18 10:16 Dose: 75 mg Donepezil HCl (Aricept -) 5 mg PO DAILY [facility] [place] Last Admin: 07/05/18 10:18 Dose: 5 mg Heparin Sodium (Porcine) (Heparin -) 5,000 unit SQ BID [facility] [place] Last Admin: 07/05/18 10:16 Dose: 5,000 unit Sodium Chloride (Normal Saline -) 1,000 mls @ 75 mls/hr IV ASDIR [facility] [place] Last Admin: 07/05/18 03:12 Dose: 75 mls/hr Ceftriaxone Sodium 1 gm/ (Dextrose) 50 mls @ 100 mls/hr IVPB [facility]; Protocol Imipramine HCl (Tofranil -) 50 mg PO DAILY [facility] Losartan Potassium (Cozaar -) 25 mg PO DAILY [facility] Last Admin: 07/05/18 10:15 Dose: 25 mg Metoprolol Tartrate (Lopressor -) 25 mg PO DAILY [facility] [place] Last Admin: 07/05/18 10:16 Dose: 25 mg Non-Formulary Medication (Oxybutynin [Oxytrol]) 1 each TD DAILY [facility] Oxybutynin Chloride (Ditropan -) 5 mg PO DAILY [facility] Last Admin: 07/05/18 10:16 Dose: 5 mg Laboratory Results - last 24 hr 07/05/18 07/05/18 07/05/18 01:13 01:13 01:13 WBC 9.8 RBC 3.47 L Hgb 11.9 Hct 34.1 MCV 98.5 H MCH 34.2 H MCHC 34.8 RDW 15.4 D Plt Count 304 MPV 8.4 Absolute Neuts (auto) 6.3 Neutrophils % 63.8 D Lymphocytes % 24.5 D Monocytes % 7.4 Eosinophils % 3.1 Basophils % 1.2 Nucleated RBC % 0 ESR PT with INR 12.30 INR 1.04 PTT (Actin FS) 31.9 VBG pH 7.39 POC VBG pCO2 54.0 H POC VBG pO2 13.4 L* Mixed VBG HCO3 32.2 H Sodium Potassium Chloride Carbon Dioxide Anion Gap BUN Creatinine Creat Clearance w eGFR Random Glucose Lactic Acid Calcium Phosphorus Magnesium Total Bilirubin AST ALT Alkaline Phosphatase Troponin I C-Reactive Protein B-Natriuretic Peptide Total Protein Albumin Urine Color Urine Appearance Urine pH Ur Specific [place] Urine Protein Urine Glucose (UA) Urine Ketones Urine Blood Urine Nitrite Urine Bilirubin Urine Urobilinogen Ur Leukocyte Esterase Urine WBC (Auto) Urine RBC (Auto) Ur Epithelial Cells Hyaline Casts Influenza A (Rapid) Influenza B (Rapid) 07/05/18 07/05/18 07/05/18 01:13 01:13 01:13 WBC RBC Hgb Hct MCV MCH MCHC RDW Plt Count MPV Absolute Neuts (auto) Neutrophils % Lymphocytes % Monocytes % Eosinophils % Basophils % Nucleated RBC % ESR PT with INR INR PTT (Actin FS) VBG pH POC VBG pCO2 POC VBG pO2 Mixed VBG HCO3 Sodium 135 L Potassium 4.4 Chloride 98 Carbon Dioxide 34 H Anion Gap 3 L BUN 16 Creatinine 1.3 Creat Clearance w eGFR 39.41 Random Glucose 97 Lactic Acid 1.3 Calcium 9.4 Phosphorus Magnesium Total Bilirubin 0.3 AST 20 ALT 32 Alkaline Phosphatase 75 Troponin I < 0.02 C-Reactive Protein B-Natriuretic Peptide Total Protein 7.6 Albumin 3.5 Urine Color Urine Appearance Urine pH Ur Specific [place] Urine Protein Urine Glucose (UA) Urine Ketones Urine Blood Urine Nitrite Urine Bilirubin Urine Urobilinogen Ur Leukocyte Esterase Urine WBC (Auto) Urine RBC (Auto) Ur Epithelial Cells Hyaline Casts Influenza A (Rapid) Influenza B (Rapid) 07/05/18 07/05/18 07/05/18 01:13 01:45 06:00 WBC 8.5 RBC 3.08 L Hgb 10.4 L Hct 30.3 L MCV 98.4 H MCH 33.7 MCHC 34.2 RDW 15.3 Plt Count 275 MPV 8.2 Absolute Neuts (auto) 5.2 Neutrophils % 60.2 Lymphocytes % 27.5 Monocytes % 8.9 Eosinophils % 2.7 Basophils % 0.7 Nucleated RBC % 0 ESR 40 H PT with INR INR PTT (Actin FS) VBG pH POC VBG pCO2 POC VBG pO2 Mixed VBG HCO3 Sodium Potassium Chloride Carbon Dioxide Anion Gap BUN Creatinine Creat Clearance w eGFR Random Glucose Lactic Acid Calcium Phosphorus Magnesium Total Bilirubin AST ALT Alkaline Phosphatase Troponin I C-Reactive Protein B-Natriuretic Peptide Total Protein Albumin Urine Color Ltyellow Urine Appearance Clear Urine pH 7.0 Ur Specific [place] 1.012 Urine Protein Negative Urine Glucose (UA) Negative Urine Ketones Negative Urine Blood 1+ H Urine Nitrite Negative Urine Bilirubin Negative Urine Urobilinogen Negative Ur Leukocyte Esterase 3+ H Urine WBC (Auto) 57 Urine RBC (Auto) 22 Ur Epithelial Cells Rare Hyaline Casts 1 Influenza A (Rapid) Negative Influenza B (Rapid) Negative 07/05/18 06:00 WBC RBC Hgb Hct MCV MCH MCHC RDW Plt Count MPV Absolute Neuts (auto) Neutrophils % Lymphocytes % Monocytes % Eosinophils % Basophils % Nucleated RBC % ESR PT with INR INR PTT (Actin FS) VBG pH POC VBG pCO2 POC VBG pO2 Mixed VBG HCO3 Sodium 139 Potassium 3.7 Chloride 105 Carbon Dioxide 31 Anion Gap 4 L BUN 14 Creatinine 1.1 Creat Clearance w eGFR 47.79 Random Glucose 90 Lactic Acid Calcium 8.6 Phosphorus 3.0 Magnesium 2.3 Total Bilirubin 0.3 AST 15 ALT 23 Alkaline Phosphatase 60 Troponin I C-Reactive Protein 9.0 H B-Natriuretic Peptide 170.0 Total Protein 6.4 Albumin 3.0 L Urine Color Urine Appearance Urine pH Ur Specific [place] Urine Protein Urine Glucose (UA) Urine Ketones Urine Blood Urine Nitrite Urine Bilirubin Urine Urobilinogen Ur Leukocyte Esterase Urine WBC (Auto) Urine RBC (Auto) Ur Epithelial Cells Hyaline Casts Influenza A (Rapid) Influenza B (Rapid) ASSESSMENT AND PLAN: 82 yof with PMHx of CAD s/p PCI x2 (11/2017), RA on methotrexate, ?myositis, HTN , dementia admitted with fevers, cough -SIRS, suspect from Upper respiratory illness vs less likely, lower uncomplicated UTI -h/o overactive bladder, r/o intermittent urinary retention -CAD s/p PCI x 2 (11/2017) -RA on methotrexate, ?myositis -HTN -Dementia Plan: Influenza neg. Follow up urine/blood cx. Emperic ceftriaxone. Concerns for distended bladder on admission, bladder scan/ bladder US. Continue ASA/plavix/metoprolol. Gentle hydration. PO as tolerated. d/c IVF in 24 hours. Hold methotrexate given concerns for infection. Continue amlodipine/ARB. Hold HCTZ for now DVTPPX heparin Dispo in 24 hours if afebrile and no new concerns. PT jimenez and CM consult for d/c planning. Plan discussed with patient in detail and all questions answered.
--- NOTE | 2018-07-05 11:27 | PN ---
Physical Exam: SUBJECTIVE: Patient seen and examined No new issues overnight. States she came to hospital because of flu like symptoms and has no burning micturation or change in frequency. overnight no new issues OBJECTIVE: Vital Signs Period Temp Pulse Resp BP Sys/Pereira Pulse Ox Last 24 Hr 98.4 F-101.6 F 89-112 16-20 127-146/86-88 99-99 GENERAL: a/o x 3, EYES: Pupils equal, round and reactive to light, EARS, NOSE, THROAT: moist mucous membranes NECK: supple without lymphadenopathy, JVD, or masses. LUNGS: Breath sounds equal, clear to auscultation bilaterally. No wheezes, and no crackles. HEART: RRR, no murmurs appreciated ABDOMEN: Soft, nontender, not distended, normoactive bowel sounds, no guarding, no rebound, no masses. LOWER EXTREMITIES: 2+ pulses, No peripheral edema. SKIN: dry Laboratory Results - last 24 hr 07/05/18 07/05/18 07/05/18 01:13 01:13 01:13 WBC 9.8 RBC 3.47 L Hgb 11.9 Hct 34.1 MCV 98.5 H MCH 34.2 H MCHC 34.8 RDW 15.4 D Plt Count 304 MPV 8.4 Absolute Neuts (auto) 6.3 Neutrophils % 63.8 D Lymphocytes % 24.5 D Monocytes % 7.4 Eosinophils % 3.1 Basophils % 1.2 Nucleated RBC % 0 ESR PT with INR 12.30 INR 1.04 PTT (Actin FS) 31.9 VBG pH 7.39 POC VBG pCO2 54.0 H POC VBG pO2 13.4 L* Mixed VBG HCO3 32.2 H Sodium Potassium Chloride Carbon Dioxide Anion Gap BUN Creatinine Creat Clearance w eGFR Random Glucose Lactic Acid Calcium Phosphorus Magnesium Total Bilirubin AST ALT Alkaline Phosphatase Troponin I C-Reactive Protein B-Natriuretic Peptide Total Protein Albumin Urine Color Urine Appearance Urine pH Ur Specific [place] Urine Protein Urine Glucose (UA) Urine Ketones Urine Blood Urine Nitrite Urine Bilirubin Urine Urobilinogen Ur Leukocyte Esterase Urine WBC (Auto) Urine RBC (Auto) Ur Epithelial Cells Hyaline Casts Influenza A (Rapid) Influenza B (Rapid) 07/05/18 07/05/18 07/05/18 01:13 01:13 01:13 WBC RBC Hgb Hct MCV MCH MCHC RDW Plt Count MPV Absolute Neuts (auto) Neutrophils % Lymphocytes % Monocytes % Eosinophils % Basophils % Nucleated RBC % ESR PT with INR INR PTT (Actin FS) VBG pH POC VBG pCO2 POC VBG pO2 Mixed VBG HCO3 Sodium 135 L Potassium 4.4 Chloride 98 Carbon Dioxide 34 H Anion Gap 3 L BUN 16 Creatinine 1.3 Creat Clearance w eGFR 39.41 Random Glucose 97 Lactic Acid 1.3 Calcium 9.4 Phosphorus Magnesium Total Bilirubin 0.3 AST 20 ALT 32 Alkaline Phosphatase 75 Troponin I < 0.02 C-Reactive Protein B-Natriuretic Peptide Total Protein 7.6 Albumin 3.5 Urine Color Urine Appearance Urine pH Ur Specific [place] Urine Protein Urine Glucose (UA) Urine Ketones Urine Blood Urine Nitrite Urine Bilirubin Urine Urobilinogen Ur Leukocyte Esterase Urine WBC (Auto) Urine RBC (Auto) Ur Epithelial Cells Hyaline Casts Influenza A (Rapid) Influenza B (Rapid) 07/05/18 07/05/18 07/05/18 01:13 01:45 06:00 WBC 8.5 RBC 3.08 L Hgb 10.4 L Hct 30.3 L MCV 98.4 H MCH 33.7 MCHC 34.2 RDW 15.3 Plt Count 275 MPV 8.2 Absolute Neuts (auto) 5.2 Neutrophils % 60.2 Lymphocytes % 27.5 Monocytes % 8.9 Eosinophils % 2.7 Basophils % 0.7 Nucleated RBC % 0 ESR 40 H PT with INR INR PTT (Actin FS) VBG pH POC VBG pCO2 POC VBG pO2 Mixed VBG HCO3 Sodium Potassium Chloride Carbon Dioxide Anion Gap BUN Creatinine Creat Clearance w eGFR Random Glucose Lactic Acid Calcium Phosphorus Magnesium Total Bilirubin AST ALT Alkaline Phosphatase Troponin I C-Reactive Protein B-Natriuretic Peptide Total Protein Albumin Urine Color Ltyellow Urine Appearance Clear Urine pH 7.0 Ur Specific [place] 1.012 Urine Protein Negative Urine Glucose (UA) Negative Urine Ketones Negative Urine Blood 1+ H Urine Nitrite Negative Urine Bilirubin Negative Urine Urobilinogen Negative Ur Leukocyte Esterase 3+ H Urine WBC (Auto) 57 Urine RBC (Auto) 22 Ur Epithelial Cells Rare Hyaline Casts 1 Influenza A (Rapid) Negative Influenza B (Rapid) Negative 07/05/18 06:00 WBC RBC Hgb Hct MCV MCH MCHC RDW Plt Count MPV Absolute Neuts (auto) Neutrophils % Lymphocytes % Monocytes % Eosinophils % Basophils % Nucleated RBC % ESR PT with INR INR PTT (Actin FS) VBG pH POC VBG pCO2 POC VBG pO2 Mixed VBG HCO3 Sodium 139 Potassium 3.7 Chloride 105 Carbon Dioxide 31 Anion Gap 4 L BUN 14 Creatinine 1.1 Creat Clearance w eGFR 47.79 Random Glucose 90 Lactic Acid Calcium 8.6 Phosphorus 3.0 Magnesium 2.3 Total Bilirubin 0.3 AST 15 ALT 23 Alkaline Phosphatase 60 Troponin I C-Reactive Protein 9.0 H B-Natriuretic Peptide 170.0 Total Protein 6.4 Albumin 3.0 L Urine Color Urine Appearance Urine pH Ur Specific [place] Urine Protein Urine Glucose (UA) Urine Ketones Urine Blood Urine Nitrite Urine Bilirubin Urine Urobilinogen Ur Leukocyte Esterase Urine WBC (Auto) Urine RBC (Auto) Ur Epithelial Cells Hyaline Casts Influenza A (Rapid) Influenza B (Rapid) Active Medications Generic Name Dose Route Start Last Admin Trade Name Freq PRN Reason Stop Dose Admin Acetaminophen 650 mg 07/05/18 03:18 Tylenol - PO Q6H PRN FEVER Allopurinol 100 mg 07/05/18 10:00 07/05/18 10:16 Zyloprim - PO 100 mg DAILY [facility] Administration Amlodipine Besylate 5 mg 07/05/18 10:00 07/05/18 10:16 Norvasc - PO 5 mg DAILY [facility] Administration Aspirin 81 mg 07/05/18 10:00 07/05/18 10:16 Ecotrin - PO 81 mg DAILY [facility] Administration Cholecalciferol 1,000 unit 07/05/18 10:00 07/05/18 10:16 Vitamin D3 - PO 1,000 unit DAILY [facility] Administration Clopidogrel Bisulfate 75 mg 07/05/18 10:00 07/05/18 10:16 Plavix - PO 75 mg DAILY [facility] Administration Donepezil HCl 5 mg 07/05/18 10:00 07/05/18 10:18 Aricept - PO 5 mg DAILY [facility] Administration Heparin Sodium (Porcine) 5,000 unit 07/05/18 10:00 07/05/18 10:16 Heparin - SQ 5,000 unit BID [facility] Administration Sodium Chloride 1,000 mls @ 75 mls/hr 07/05/18 03:00 07/05/18 03:12 Normal Saline - IV 75 mls/hr ASDIR [facility] Administration Ceftriaxone Sodium 1 gm/ 50 mls @ 100 mls/hr 07/05/18 22:00 Dextrose IVPB HS [facility] Protocol Imipramine HCl 50 mg 07/05/18 10:00 Tofranil - PO DAILY [facility] Losartan Potassium 25 mg 07/05/18 10:00 07/05/18 10:15 Cozaar - PO 25 mg DAILY [facility] Administration Metoprolol Tartrate 25 mg 07/05/18 10:00 07/05/18 10:16 Lopressor - PO 25 mg DAILY [facility] Administration Non-Formulary Medication 1 each 07/05/18 10:00 Oxybutynin [Oxytrol] TD DAILY [facility] Oxybutynin Chloride 5 mg 07/05/18 10:00 07/05/18 10:16 Ditropan - PO 5 mg DAILY [facility] Administration ASSESSMENT/PLAN:82 yo F with a PMHx of HTN, a "muscle disease", [place] s/p 2 stents( 12/07), presented with cough and fever and found to be septic. #uti -one reading of fever since yesterday -UA: 3+ LE, 57 WBC - conitinue IV antibiotic. We will wait for culture -75ml/hour NS. Stop once pt has good po intake -Tylenol PRN for fever #CKD -at baseline #CAD/HTN -cont. Plavix 75mg -cont Amlodipine 5mg -Cont. Losartan 25 -Cont. Toprol 25 - continue aspirin -med rec patient #RA hold methotrexate for now can take it from next week #Urinary incontinence -cont. home oxybutynin #FEN -NS @75 -monitor -sodium restricted #DVT -heparin sq Visit type - Emergency Visit Emergency Visit: Yes ED Registration Date: 07/05/18 Care time: The patient presented to the Emergency Department on the above date and was hospitalized for further evaluation of their emergent condition. - New Patient This patient is new to me today: Yes Date on this admission: 07/05/18 - Critical Care Critical Care patient: No
[2018-07-05] MEDS ORDERED: PT OWN MED DRAWER 7, Y5N ONE (11:47)
[2018-07-05] MEDS: IMIPRAMINE HCL 25 MG TABLET (NON FORMULARY) PO SCH (11:51)
[2018-07-05] MEDS ORDERED: cefTRIAXone SODIUM 1 GM VIAL ONE (21:28)
[2018-07-05] MEDS ORDERED: DEXTROSE 5%-WATER - 50 ML IVPB ONE (21:28)
[2018-07-05] MEDS ORDERED: CEFTRIAXONE 1 GM in DEXTROSE 5%-WATER - 50 ML IVPB SCH (22:00)
[2018-07-06] MEDS: SODIUM CHLORIDE 1,000 ML IV SCH (04:42)
[2018-07-06 08:21] VITALS: BP 143/89; PULSE 89; TEMP 98.1
[2018-07-06 09:00] LABS: BASO % 0.8 % (0-2.0); EOS % 3.6 % (0-4.5); HEMATOCRIT 32.4 % (32.4-45.2); LYMPH % 24.2 % (8-40); MCH 33.3 pg (25.7-33.7); MONO % 9.2 % (3.8-10.2); NEUT % 62.2 % (42.8-82.8); PLATELET COUNT 287 K/MM3 (134-434); RBC 3.31 M/mm3 (3.60-5.2); RDW 15.5 % (11.6-15.6); WHITE BLOOD COUNT 10.2 K/mm3 (4.0-10.0)
[2018-07-06 09:23] LABS: ANION GAP 7 MMOL/L (8-16); BLOOD UREA NITROGEN 9 mg/dL (7-18); CHLORIDE 103 mmol/L (98-107); CO2 28 mmol/L (21-32); CREATININE 0.9 mg/dL (0.55-1.3); GLUCOSE,RANDOM 80 mg/dL (74-106); POTASSIUM 3.5 mmol/L (3.5-5.1); SODIUM 138 mmol/L (136-145)
[2018-07-06] MEDS ORDERED: PT OWN MED DRAWER 7, Y5N ONE (09:57)
[2018-07-06] MEDS: HEPARIN NA (PORCINE) 5,000 UNITS/ML 1ML VIAL SQ SCH (09:58)
[2018-07-06] MEDS: amLODIPine BESYLATE 5 MG TABLET (FP) PO SCH (09:59)
[2018-07-06] MEDS: LOSARTAN POTASSIUM 25 MG TABLET PO SCH (10:00)
[2018-07-06] MEDS: ALLOPURINOL 100 MG TABLET (FP) PO SCH (10:00)
[2018-07-06] MEDS: CLOPIDOGREL BISULFATE 75 MG TABLET (FP) PO SCH (10:00)
[2018-07-06] MEDS: CHOLECALCIFEROL (VITAMIN D3) 1,000 UNIT TABLET (FP) PO SCH (10:00)
[2018-07-06] MEDS: METOPROLOL TARTRATE 25 MG TABLET (FP) PO SCH (10:00)
[2018-07-06] MEDS: ASPIRIN COATED 81 MG TABLET.EC PO SCH (10:00)
[2018-07-06] MEDS: OXYBUTYNIN CHLORIDE 5 MG TABLET PO SCH (10:00)
[2018-07-06] MEDS: IMIPRAMINE HCL 25 MG TABLET (NON FORMULARY) PO SCH (10:01)
[2018-07-06] MEDS: DONEPEZIL HCL 5 MG TABLET (FP) PO SCH (10:01)
--- NOTE | 2018-07-06 11:20 | PN ---
Teaching Attending Note Name of Resident: Denny Trivedi ATTENDING PHYSICIAN STATEMENT I saw and evaluated the patient. I reviewed the resident's note and discussed the case with the resident. I agree with the resident's findings and plan as documented with exceptions below. SUBJECTIVE: patient seen and examined, cough better, no new complaints. Tolerating diet well , no new fevers OBJECTIVE: Vital Signs Period Temp Pulse Resp BP Sys/Pereira Pulse Ox Last 24 Hr 97.4 F-99.4 F 78-91 18-20 123-143/63-89 99 Intake & Output 07/03/18 07/04/18 07/05/18 07/06/18 23:59 23:59 23:59 23:59 Intake Total 2550 750 Balance 2550 750 Weight 150 lb 2.157 oz General: sitting in bed in no acute distress Chest: CTAB, no rales or wheezing Abdomen:Soft, NT no suprapubic or CVA tenderness Extremities: no edema Home Medications Medication Instructions Recorded Aspirin Coated [Ecotrin -] 81 mg PO DAILY 04/16/12 Amlodipine/Valsartan/Hcthiazid 1 each PO DAILY 07/18/15 [Uytom-Cwmcw-Odng 10-160-25 mg] Cholecalciferol (Vitamin D3) 1,000 unit PO DAILY 11/14/15 [Vitamin D3] Cyanocobalamin [Vitamin B12 -] 1,000 mcg PO DAILY 11/14/15 Donepezil HCl [Aricept -] 5 mg PO DAILY 12/04/17 Imipramine HCl 50 mg PO DAILY 12/04/17 Meloxicam 15 mg PO DAILY 12/04/17 Methotrexate Sodium [Methotrexate] 20 mg PO WEEKLY 12/04/17 Allopurinol [Zyloprim -] 100 mg PO DAILY 07/05/18 Atorvastatin Ca [Lipitor] 10 mg PO HS 07/05/18 Clopidogrel Bisulfate [Plavix] 75 mg PO DAILY 07/05/18 Losartan Potassium 25 mg PO DAILY 07/05/18 Metoprolol Tartrate 25 mg PO DAILY 07/05/18 Oxybutynin [Oxytrol] 1 each TD DAILY 07/05/18 Cephalexin [Keflex] 500 mg PO BID #10 capsule 07/06/18 Active Medications Acetaminophen (Tylenol -) 650 mg PO Q6H PRN PRN Reason: FEVER Allopurinol (Zyloprim -) 100 mg PO DAILY [facility] Last Admin: 07/06/18 10:00 Dose: 100 mg Amlodipine Besylate (Norvasc -) 5 mg PO DAILY [facility] Last Admin: 07/06/18 09:59 Dose: 5 mg Aspirin (Ecotrin -) 81 mg PO DAILY [facility] Last Admin: 07/06/18 10:00 Dose: 81 mg Cephalexin HCl (Keflex -) 500 mg PO ONCE ONE Stop: 07/06/18 11:31 Cholecalciferol (Vitamin D3 -) 1,000 unit PO DAILY [facility] Last Admin: 07/06/18 10:00 Dose: 1,000 unit Clopidogrel Bisulfate (Plavix -) 75 mg PO DAILY [facility] Last Admin: 07/06/18 10:00 Dose: 75 mg Donepezil HCl (Aricept -) 5 mg PO DAILY [facility] Last Admin: 07/06/18 10:01 Dose: 5 mg Heparin Sodium (Porcine) (Heparin -) 5,000 unit SQ BID [facility] Last Admin: 07/06/18 09:58 Dose: 5,000 unit Sodium Chloride (Normal Saline -) 1,000 mls @ 75 mls/hr IV ASDIR [facility] Last Admin: 07/06/18 04:42 Dose: 75 mls/hr Ceftriaxone Sodium 1 gm/ (Dextrose) 50 mls @ 100 mls/hr IVPB HS [facility]; Protocol Last Admin: 07/05/18 21:42 Dose: 100 mls/hr Imipramine HCl (Tofranil -) 50 mg PO DAILY [facility] Last Admin: 07/06/18 10:01 Dose: 50 mg Losartan Potassium (Cozaar -) 25 mg PO DAILY [facility] Last Admin: 07/06/18 10:00 Dose: 25 mg Metoprolol Tartrate (Lopressor -) 25 mg PO DAILY [facility] Last Admin: 07/06/18 10:00 Dose: 25 mg Oxybutynin Chloride (Ditropan -) 5 mg PO DAILY [facility] Last Admin: 07/06/18 10:00 Dose: 5 mg Laboratory Results - last 24 hr 07/05/18 07/06/18 07/06/18 10:30 08:31 08:31 WBC 10.2 H RBC 3.31 L Hgb 11.0 Hct 32.4 MCV 98.0 H MCH 33.3 MCHC 34.0 RDW 15.5 Plt Count 287 MPV 8.0 Absolute Neuts (auto) 6.3 Neutrophils % 62.2 Lymphocytes % 24.2 Monocytes % 9.2 Eosinophils % 3.6 Basophils % 0.8 Nucleated RBC % 0 Sodium 138 Potassium 3.5 Chloride 103 Carbon Dioxide 28 Anion Gap 7 L BUN 9 Creatinine 0.9 Creat Clearance w eGFR > 60 Random Glucose 80 Calcium 9.0 Influenza A (Rapid) Negative Influenza B (Rapid) Negative Microbiology 07/05/18 01:45 Urine - Urine Clean Catch Urine Culture - Preliminary 07/05/18 01:19 Blood - Peripheral Venous Blood Culture - Preliminary NO GROWTH OBTAINED AFTER 24 HOURS, INCUBATION TO CONTINUE FOR 4 DAYS. 07/05/18 01:19 Blood - Peripheral Venous Blood Culture - Preliminary NO GROWTH OBTAINED AFTER 24 HOURS, INCUBATION TO CONTINUE FOR 4 DAYS. ASSESSMENT AND PLAN: 82 yof with PMHx of CAD s/p PCI x2 (11/2017), RA on methotrexate, ?myositis, HTN , dementia admitted with fevers, cough -SIRS, suspect from Upper respiratory illness vs less likely, lower uncomplicated UTI -h/o overactive bladder, r/o intermittent urinary retention -CAD s/p PCI x 2 (11/2017) -RA on methotrexate, ?myositis -HTN -Dementia Plan: Influenza neg.blood cx neg, afebrile, urine cx pending (minute colonies) however patient with no abdominal or urinary symptoms on presentation. Clear clinical symptoms of cough, URI like illness and sick contact likely contributory to her fevers on presentation. Short course of keflex. Continue ASA/plavix/metoprolol. Tolerating Po well. resume home meds DVTPPX heparin Dispo PT eval noted, d/c home with VNS/PT with outpatient PCP follow up. Plan discussed with patient in detail, all questions answered.
--- NOTE | 2018-07-06 11:22 | DS ---
Physical Exam: SUBJECTIVE: Patient seen and examined no new complaints pt feels good OBJECTIVE: Vital Signs Period Temp Pulse Resp BP Sys/Pereira Pulse Ox Last 24 Hr 97.4 F-99.4 F 78-91 18-20 123-143/63-89 99 PHYSICAL EXAM GENERAL: a/o x 3, EYES: Pupils equal, round and reactive to light, EARS, NOSE, THROAT: moist mucous membranes NECK: supple without lymphadenopathy, JVD, or masses. LUNGS: Breath sounds equal, clear to auscultation bilaterally. No wheezes, and no crackles. HEART: RRR, no murmurs appreciated ABDOMEN: Soft, nontender, not distended, normoactive bowel sounds, no guarding, no rebound, no masses. LOWER EXTREMITIES: 2+ pulses, No peripheral edema. SKIN: dry LABS Laboratory Results - last 24 hr 07/05/18 07/06/18 07/06/18 10:30 08:31 08:31 WBC 10.2 H RBC 3.31 L Hgb 11.0 Hct 32.4 MCV 98.0 H MCH 33.3 MCHC 34.0 RDW 15.5 Plt Count 287 MPV 8.0 Absolute Neuts (auto) 6.3 Neutrophils % 62.2 Lymphocytes % 24.2 Monocytes % 9.2 Eosinophils % 3.6 Basophils % 0.8 Nucleated RBC % 0 Sodium 138 Potassium 3.5 Chloride 103 Carbon Dioxide 28 Anion Gap 7 L BUN 9 Creatinine 0.9 Creat Clearance w eGFR > 60 Random Glucose 80 Calcium 9.0 Influenza A (Rapid) Negative Influenza B (Rapid) Negative HOSPITAL COURSE:Patient is an 82 yo F with a PMHx of HTN, a "muscle disease", LA s/p 2 stents(12/07), presented because of a cough with white sputum production and intermittent fevers over the last week. She also complains of chills and a stuffy nose that started the same time. She denies sick contacts and recent travel. She lives with her daughter. She denies urinary symptoms except for her chronic urinary incontinence. Daughter says patient also has not been drinking water and thinks her mother is dehydrated. Patient denies nausea, vomiting, sob, headaches, chest pain, numbness, tingling, diarrhea, decrease in appetite. Pt foud to have uti. Pt treated on ceftriaxone IV. Pt has no episode of fever in hospital. Pt DC home with VNS on keflex 500mg bid for 5 more days. advise Follow up with your PCP Dr. le with in one week. Drink plenty of liquid. Continue taking all of your heart and hypertension medicines as you were taking it before. Start taking your methotrexate from next week. Take all of your medications as you were taking before. Take keflex antibiotic 500mg twice a day for 5 more days If you develop pain abdomen, nausea, vomiting, fever, chills or any new symptoms call your doctor or go to hospital Your urine culture final reports are currently pending and you will be notified if you need to change the antibiotics. You can also have your regular doctor follow up on results in 24-48 hours. In the interim if you notice any fevers, chills, belly pain, urinary symptoms or new concerns, please come to ED Date of Admission:07/05/18 Date of Discharge: 07/06/18 Minutes to complete discharge: 45 Discharge Summary Reason For Visit: URINARY TRACT INFECTION/SEPSIS Condition: Guarded - Instructions Diet, Activity, Other Instructions: Follow up with your PCP Dr. le with in one week. Drink plenty of liquid. Continue taking all of your heart and hypertension medicines as you were taking it before. Start taking your methotrexate from next week. Take all of your medications as you were taking before. Take keflex antibiotic 500mg twice a day for 5 more days If you develop pain abdomen, nausea, vomiting, fever, chills or any new symptoms call your doctor or go to hospital Your urine culture final reports are currently pending and you will be notified if you need to change the antibiotics. You can also have your regular doctor follow up on results in 24-48 hours. In the interim if you notice any fevers, chills, belly pain, urinary symptoms or new concerns, please come to ED Referrals: Amanuel Le MD [Primary Care Provider] - 1 Week Disposition: VNS/HOME HEALTH CARE - Home Medications Comprehensive Discharge Medication List: Ambulatory Orders Aspirin Coated [Ecotrin -] 81 mg PO DAILY 04/16/12 Amlodipine/Valsartan/Hcthiazid [Ryfvh-Gzzbc-Ztsx 10-160-25 mg] 1 each PO DAILY 07/18/15 Cholecalciferol (Vitamin D3) [Vitamin D3] 1,000 unit PO DAILY 11/14/15 Cyanocobalamin [Vitamin B12 -] 1,000 mcg PO DAILY 11/14/15 Donepezil HCl [Aricept -] 5 mg PO DAILY 12/04/17 Imipramine HCl 50 mg PO DAILY 12/04/17 Meloxicam 15 mg PO DAILY 12/04/17 Methotrexate Sodium [Methotrexate] 20 mg PO WEEKLY 12/04/17 Allopurinol [Zyloprim -] 100 mg PO DAILY 07/05/18 Atorvastatin Ca [Lipitor] 10 mg PO HS 07/05/18 Clopidogrel Bisulfate [Plavix] 75 mg PO DAILY 07/05/18 Losartan Potassium 25 mg PO DAILY 07/05/18 Metoprolol Tartrate 25 mg PO DAILY 07/05/18 Oxybutynin [Oxytrol] 1 each TD DAILY 07/05/18 Cephalexin [Keflex] 500 mg PO BID #10 capsule 07/06/18 This patient is new to me today: No Emergency Visit: Yes ED Registration Date: 07/05/18 Care time: The patient presented to the Emergency Department on the above date and was hospitalized for further evaluation of their emergent condition. Critical Care patient: No - Discharge Referral Referred to [facility] Med P.C.: No
[2018-07-06] MEDS ORDERED: CEPHALEXIN MONOHYDRATE 500 MG CAPSULE (UD) PO ONE (11:30)
== END 2018-07-06 13:48 | disposition home health service (06) | DRG 690 ==
LOC: JER 00:23 → JERBED 02:34 → OBSVTOIN 02:50 → J8W 04:49
PROVIDERS: ADMIT Internal Medicine; ATTEND Hospitalist
DX: N39.0 Urinary tract infection, site not specified (principal); F03.90 Unspecified dementia, unspecified severity, without behavioral disturbance, psychotic disturbance, mood disturbance, and anxiety; I25.10 Atherosclerotic heart disease of native coronary artery without angina pectoris; Z98.61 Coronary angioplasty status; I12.9 Hypertensive chronic kidney disease with stage 1 through stage 4 chronic kidney disease, or unspecified chronic kidney disease; N18.9 Chronic kidney disease, unspecified; R32 Unspecified urinary incontinence; D75.89 Other specified diseases of blood and blood-forming organs; J06.9 Acute upper respiratory infection, unspecified; R00.0 Tachycardia, unspecified; M06.9 Rheumatoid arthritis, unspecified
CPT/HCPCS: 36415; 71045-TC-FY; 80048; 80053; 81003; 81015; 82803; 83605; 83735; 83880; 84100; 84484; 85025; 85610; 85651; 85730; 86140; 87040; 87086; 87633; 87804; 93005; 93010; 97116-GP; 97161-GP; 99285-25; G0378; J0131; J1644; J7030

== ENCOUNTER 2018-11-28 17:57 | Inpatient (IN) | payer OTHER ==
--- NOTE | 2018-11-28 18:05 | PDOC ---
Rapid Medical Evaluation Time Seen by Provider: 11/28/18 17:59 Medical Evaluation: Allergies Allergy/AdvReac Type Severity Reaction Status Date / Time No Known Drug Allergies Allergy Intermediate Verified 11/28/18 18:00 11/28/18 18:01 Pt c/o: fell backwards onto carpet while trying to sit in recliner 2 days ago. no loc. no w c/o neck pain Pt on brief exam: no midline cer tenderness, vss, Pt ordered for: head and neck ct, cbc, comp Pt to proceed to the ED Discharge Disposition - Diagnosis Neck pain, FRED (acute kidney injury), Weakness - Discharge Dispostion Disposition: HOME Condition at time of disposition: Stable - Referrals - Patient Instructions - Post Discharge Activity
--- NOTE | 2018-11-28 20:50 | PDOC ---
History of Present Illness - General Chief Complaint: Injury Stated Complaint: FALL/NECK PAIN Time Seen by Provider: 11/28/18 17:59 - History of Present Illness Initial Comments: 11/28/18 22:18 The patient is an 83 year old female with a history of HTN, arthritis who presents for evaluation following a fall. The patient is accompanied by family who assists in providing the history. They state that the patient was sitting in a recliner chair when it lifted to quickly and the patient fell out striking her head on a dresser 2 days ago. The patient has been experiencing worsening neck pain over the past 2 days prompting her presentation to the ED for further evaluation. They also note some generalized weakness but otherwise denies headache, fevers, chills, SOB, chest pain, nausea, vomiting, abdominal pain, numbness, tingling, focal weakness, or changes with urination or bowel movements. Past History - Past Medical History Allergies/Adverse Reactions: Allergies Allergy/AdvReac Type Severity Reaction Status Date / Time No Known Drug Allergies Allergy Intermediate Verified 11/28/18 18:00 Home Medications: Ambulatory Orders Aspirin Coated [Ecotrin -] 81 mg PO DAILY 04/16/12 Amlodipine/Valsartan/Hcthiazid [Kecak-Rjplz-Fsau 10-160-25 mg] 1 each PO DAILY 07/18/15 Cholecalciferol (Vitamin D3) [Vitamin D3] 1,000 unit PO DAILY 11/14/15 Cyanocobalamin [Vitamin B12 -] 1,000 mcg PO DAILY 11/14/15 Donepezil HCl [Aricept -] 5 mg PO DAILY 12/04/17 Imipramine HCl 50 mg PO DAILY 12/04/17 Meloxicam 15 mg PO DAILY 12/04/17 Methotrexate Sodium [Methotrexate] 20 mg PO WEEKLY 12/04/17 Allopurinol [Zyloprim -] 100 mg PO DAILY 07/05/18 Atorvastatin Ca [Lipitor] 10 mg PO HS 07/05/18 Clopidogrel Bisulfate [Plavix] 75 mg PO DAILY 07/05/18 Losartan Potassium 25 mg PO DAILY 07/05/18 Metoprolol Tartrate 25 mg PO DAILY 07/05/18 Oxybutynin [Oxytrol] 1 each TD DAILY 07/05/18 Cephalexin [Keflex] 500 mg PO BID #10 capsule 07/06/18 Anemia: No Asthma: No Cancer: No Cardiac Disorders: No CVA: No COPD: No CHF: No Dementia: No Diabetes: No GI Disorders: No Disorders: No HTN: Yes Hypercholesterolemia: No Liver Disease: No Seizures: No Thyroid Disease: No - Immunization History Immunization Up to Date: Yes (FLU) - Suicide/Smoking/Psychosocial Hx Smoking Status: No Smoking History: Never smoked Have you smoked in the past 12 months: No Number of Cigarettes Smoked Daily: 0 Information on smoking cessation initiated: No Hx Alcohol Use: No Drug/Substance Use Hx: No Substance Use Type: None Review of Systems - Review of Systems Comments:: 11/28/18 22:20 Constitutional: Fatigue No fevers, chills,malaise HEENT: Neck pain. No Rhinorrhea, nasal congestion, visual changes Cardiovascular: No chest pain, syncope, palpitations, lightheadedness Respiratory: No Cough, SOB, Hemoptysis, Gastrointestinal: No Abdominal pain, Nausea, Vomiting, Constipation, Diarrhea, Melena Genitourinary: No Dysuria, Frequency, Urgency, Hesitancy, Hematuria, Flank pain Musculoskeletal: No Myalgia, arthralgia Skin: No rashes, itching, bruising, pallor Neurologic: No Headache, Dizziness, Numbness, Weakness, or Tingling Psychiatric: No Hallucinations. No SI or HI *Physical Exam - Vital Signs Last Vital Signs Temp Pulse Resp BP Pulse Ox 98.3 F 99 H 16 116/65 100 11/28/18 18:01 11/28/18 18:01 11/28/18 18:01 11/28/18 18:01 11/28/18 18:01 - Physical Exam Comments: 11/28/18 22:21 General Appearance: Nourished. No Apparent Distress HEENT: EOMI, JOSSY. No Pharyngeal Erythema, Tonsillar Exudate, Tonsillar Erythema Neck: No Cervical Lymphadenopathy or C-spine Tenderness. Full ROM. Respiratory/Chest: Lungs Clear, Normal Breath Sounds. No Crackles, Rales, Rhonchi, Wheezing Cardiovascular: Regular Rhythm, Regular Rate. No Murmur, Gallops, Rubs Gastrointestinal/Abdominal: Normal Bowel Sounds, Soft. No Guarding, Rebound, Tenderness Musculoskeletal: No CVA Tenderness Extremity: Normal Capillary Refill Integumentary: Normal Color, Dry, Warm Neurologic: seed buyer II-XII NML intact, Fully Oriented, Alert, Normal Mood/Affect, Normal Response, Motor Strength 5/5. Heart Score/ECG Review #1 ECG reviewed & interpreted by me at: 23:48 11/28/18 23:48 HR 77 NE 180 QRS 72 QTc 441 Normal Sinus Rhythm No Acute ST Changes ED Treatment Course - LABORATORY CBC & Chemistry Diagram: 11/28/18 21:30 11/28/18 18:06 Medical Decision Making - Medical Decision Making 11/28/18 22:21 The patient is an 83 year old female with a history of HTN, arthritis who presents for evaluation following a fall. Differential includes but is not limited to: Intracranial process, fracture, metabolic derangement. Given the patient's history and physical exam, we will obtain a cbc, cmp, ua, ekg, head ct , cervical ct to evaluate further. We will continue to monitor and reassess while here in the ED. 11/28/18 23:58 CBC is unremarkable. CMP demonstrates an elevated creatinine to 1.7. We will treat the patient with iv fluids. Head CT, and Cervical CT were unremarkable as read by our radiologist. We discussed with the patient's family regarding admission vs. outpatient management and the patient's family is more comfortable with admission for further management and monitoring of the patient' s FRED. We discussed the case with the admitting team who accepted the patient for admission. *DC/Admit/Observation/Transfer Diagnosis at time of Disposition: Neck pain, FRED (acute kidney injury), Weakness - Discharge Dispostion Condition at time of disposition: Stable Decision to Admit order: Yes - Referrals Referrals: Amanuel Le MD [Primary Care Provider] - - Patient Instructions - Post Discharge Activity
[2018-11-28] MEDS ORDERED: SODIUM CHLORIDE 250 ML IV STA (20:51)
[2018-11-28 21:38] LABS: HEMOGLOBIN 10.7 GM/dL (10.7-15.3); WHITE BLOOD COUNT 3.8 K/mm3 (4.0-10.0)
[2018-11-28 21:39] LABS: BASO % 0.8 % (0-2.0); EOS % 3.1 % (0-4.5); HEMATOCRIT 32.2 % (32.4-45.2); LYMPH % 36.1 % (8-40); MCH 32.5 pg (25.7-33.7); MCHC 33.3 g/dl (32.0-36.0); MEAN CELL VOLUME 97.6 fl (80-96); MEAN PLT VOLUME 7.8 fl (7.5-11.1); PLATELET COUNT 257 K/MM3 (134-434); RDW 16.2 % (11.6-15.6)
[2018-11-28 22:04] LABS: ALBUMIN 3.7 g/dl (3.4-5.0); BILIRUBIN,TOTAL 0.5 mg/dL (0.2-1); BLOOD UREA NITROGEN 24.5 mg/dL (7-18); CALCIUM 9.2 mg/dL (8.5-10.1); CREATININE 1.7 mg/dL (0.55-1.3); POTASSIUM 4.2 mmol/L (3.5-5.1); TOT PROT 6.7 g/dl (6.4-8.2)
[2018-11-28] MEDS ORDERED: SODIUM CHLORIDE 1,000 ML IV STA (23:04)
--- NOTE | 2018-11-28 23:16 | PDOC ---
Documentation entered by Elsa Hall SCRIBE, acting as scribe for Esthela Flores DO. Esthela Flores DO: This documentation has been prepared by the Isabel bowen Brenda, SCRIBE, under my direction and personally reviewed by me in its entirety. I confirm that the documentation accurately reflects all work , treatment, procedures, and medical decision making performed by me. Attending Attestation - Resident Resident Name: Micheal Ruby - ED Attending Attestation I have performed the following: I have examined & evaluated the patient, The case was reviewed & discussed with the resident, I agree w/resident's findings & plan, Exceptions are as noted - HPI HPI: 11/28/18 23:06 The patient is an 83 year old female, with a significant PMH of HTN, arthritis, mild dementia, and RA, who presents to the emergency department BIBA s/p fall. The patient reports experiencing a fall a few days ago and began to feel neck pain. Daughter, on the bedside, endorses weakness. The patient denies chest pain, shortness of breath, headache and dizziness. Denies fever, chills, nausea, vomiting, diarrhea and constipation. Allergies: NKA Past surgical history: Not reported. Social history: Denies. PCP: Dr. Fredrick Le - Physicial Exam PE: 11/28/18 21:03 Agree with resident's exam. - Medical Decision Making 11/28/18 23:15 83-year-old female status post mechanical fall with neck pain CT scans of the head and neck are negative for acute traumatic injury There is a mild elevation of patient's creatinine, plan for IV fluids and discussion with family regarding overnight admission versus discharge home and prompt outpatient follow-up for repeat labs in 48 hours
[2018-11-28 23:23] LABS: EPI CELLS 1.2 /HPF (0-5/HPF); HYALINE CASTS 4 /lpf (0-8); URINE APPEARANCE CLEAR; URINE BACTERIA 7.8 /hpf (NEGATIVE); URINE BILIRUBIN NEGATIVE (NEGATIVE); URINE COLOR YELLOW; URINE GLUCOSE (UA) NEGATIVE (NEGATIVE); URINE KETONE NEGATIVE (NEGATIVE); URINE LEUK ESTERASE TRACE (NEGATIVE); URINE NITRITE NEGATIVE (NEGATIVE); URINE PROTEIN NEGATIVE (NEGATIVE); URINE RBC 2 /hpf (0-4); URINE UROBILINOGEN 0.2 mg/dL (0.2-1.0); URINE WBC 3 /hpf (0-5)
--- NOTE | 2018-11-29 00:26 | PN ---
Teaching Attending Note Name of Resident: Norma Garcia ATTENDING PHYSICIAN STATEMENT I saw and evaluated the patient. I reviewed the resident's note and discussed the case with the resident. I agree with the resident's findings and plan as documented. SUBJECTIVE: Patient is an 83 year old woman with PMH of Dementia, Overactive bladder, HLD, NSTEMI (11/2017 s/p PCI), HTN, Gout, Left carotid endarterectomy and Rheumatoid arthritis (?on Methotrexate and Meloxicam) who presents for evaluation following a fall. Patient is accompanied by family who assists in providing the history. They state that the patient was sitting in a recliner chair and when it lifted quickly, patient fell out striking her head on a dresser 2 days ago. The patient has been experiencing worsening neck pain over the past 2 days prompting her presentation to the ER for further evaluation. Has had poor oral intake. They also note some generalized weakness but otherwise deny headache, fevers, chills, SOB, chest pain, nausea, vomiting, abdominal pain, numbness, tingling, focal weakness, or changes with urination or bowel movements. No sick contacts or recent travel. OBJECTIVE: Alert and orthostatic Vital Signs Period Temp Pulse Resp BP Sys/Pereira Pulse Ox Last 24 Hr 98.3 F 99 16 116/65 100 HEENT: No Jaundice, eye redness or discharge, PERRLA, EOMI. Normocephalic, atraumatic. External ears are normal and hearing is grossly intact. No nasal discharge. Neck: Supple, nontender. No palpable adenopathy or thyromegaly. No JVD Chest: Good effort. Clear to auscultation and percussion. Heart: Regular. No S3, rub or murmur Abdomen: Not distended, soft, nontender and no HSM. No rebound or guarding. Normal bowel sounds. Ext: Peripheral pulses intact. No leg edema. Skin: Warm and dry. No petechiae, rash or ecchymosis. Neuro: Alert. Oriented x3. CN 2-12 grossly intact. Sensation grossly intact in all four extremities and DTR are symmetric. Psych: Appropriate mood and affect. Good insight. Home Medications Medication Instructions Recorded Aspirin Coated [Ecotrin -] 81 mg PO DAILY 04/16/12 Amlodipine/Valsartan/Hcthiazid 1 each PO DAILY 07/18/15 [Gkgcy-Nttsd-Cmag 10-160-25 mg] Cholecalciferol (Vitamin D3) 1,000 unit PO DAILY 11/14/15 [Vitamin D3] Cyanocobalamin [Vitamin B12 -] 1,000 mcg PO DAILY 11/14/15 Donepezil HCl [Aricept -] 5 mg PO DAILY 12/04/17 Imipramine HCl 50 mg PO DAILY 12/04/17 Meloxicam 15 mg PO DAILY 12/04/17 Methotrexate Sodium [Methotrexate] 20 mg PO WEEKLY 12/04/17 Allopurinol [Zyloprim -] 100 mg PO DAILY 07/05/18 Atorvastatin Ca [Lipitor] 10 mg PO HS 07/05/18 Clopidogrel Bisulfate [Plavix] 75 mg PO DAILY 07/05/18 Losartan Potassium 25 mg PO DAILY 07/05/18 Metoprolol Tartrate 25 mg PO DAILY 07/05/18 Oxybutynin [Oxytrol] 1 each TD DAILY 07/05/18 Cephalexin [Keflex] 500 mg PO BID #10 capsule 07/06/18 Abnormal Lab Results 11/28/18 11/28/18 18:06 21:30 WBC 3.8 L RBC 3.30 L Hct 32.2 L MCV 97.6 H RDW 16.2 H Anion Gap 5 L BUN 24.5 H Creatinine 1.7 H AST 41 H ASSESSMENT AND PLAN: 1. Fall/Weakness/FRED - Weakness likely partly due to medication adverse effect, hypotension and dehydration. Patient is on 5 antihypertensive drugs - some at high doses as well as imipramine. Also on methotrexate and meloxicam - the latter may be contributing to FRED. Will hold antihypertensive drugs, give IV fluids gently, check uric acid, CPK and get kidney sonogram. Monitor urine output. No acute pathology on head CT and C-spine CT showed degenerative arthrtis changes. EKG is pending. Will consult nephrology and avoid nephrotoxic agents such as NSAIDS, aminoglycosides, contrast dyes and certain Alternative medicine products. 2. Anemia - Cause unclear. Will do basic anemia work up including serial stool guaiacs, reticulocyte count and iron studies. Would benefit from Procrit therapy once iron replete. 3. Hypertension - Will hold antihypertensive medications for now and restart suitable outpatient antihypertensive drugs when clinically appropriate. Revise regimen to ensure good BP control. Nonpharmacologic measures to control hypertension like weight loss, salt restriction and exercise discussed. 4. DVT prophylaxis - Heparin 5000 u SQ tid. 5. Advance directives - Full code
[2018-11-29] MEDS ORDERED: SODIUM CHLORIDE 1,000 ML IV SCH (01:45)
--- NOTE | 2018-11-29 02:26 | HP ---
CHIEF COMPLAINT:weakness; fall PCP:Dr null HISTORY OF PRESENT ILLNESS: 83 y/o female with PMH of HTN, [place] s/p 2 stents, left sided carotid endartercectomy RA on methotrexate, gout, dementia, overactive bladder, presents to the ED ludin to weakness and decreased PO intake- as per the daughter at bedside she states that her mother had what appears to have been a mechanical fall on tuesday (she states that her mother was walking to the recliner and somehow toppled over ; no LOC no prodromal symptoms were experienced). she states that she feels her mother has been having trouble walking- she uses her cane but has been noticing her mother has been holding on more upon walking . IN addition, she notes that her mothers appetite has been decreasing. she feels her mothers cognitive ability has been declining over the past few weeks and that sometimes her mother forget shes hungry and will not eat. she endorses having a productive cough with white sputum that has been lingering for a few months. she denies any sick contacts or any recent travel ER course was notable for: (1) vitals wnl (2)Cr 1.7 (baseline 1.1-1.3) (3)head and c- spine CT negative for any acute pathology Recent Travel: denies PAST MEDICAL HISTORY: see above PAST SURGICAL HISTORY: denies Social History: Smoking:denies Alcohol:denies Drugs:denies Family History: N/A Allergies No Known Drug Allergies Allergy (Intermediate, Verified 11/28/18 18:00) HOME MEDICATIONS: Home Medications Medication Instructions Recorded Aspirin Coated [Ecotrin -] 81 mg PO DAILY 04/16/12 Amlodipine/Valsartan/Hcthiazid 10 mg PO DAILY 07/18/15 [Pjhqx-Rznyz-Udhj 10-160-25 mg] Cholecalciferol (Vitamin D3) 1,000 unit PO DAILY 11/14/15 [Vitamin D3] Cyanocobalamin [Vitamin B12 -] 1,000 mcg PO DAILY 11/14/15 Donepezil HCl [Aricept -] 5 mg PO DAILY 12/04/17 Imipramine HCl 50 mg PO DAILY 12/04/17 Meloxicam 15 mg PO DAILY 12/04/17 Allopurinol [Zyloprim -] 100 mg PO DAILY 07/05/18 Atorvastatin Ca [Lipitor] 40 mg PO HS 07/05/18 Clopidogrel Bisulfate [Plavix] 75 mg PO DAILY 07/05/18 Losartan Potassium 50 mg PO DAILY 07/05/18 Metoprolol Tartrate 50 mg PO DAILY 07/05/18 Oxybutynin [Oxytrol] 5 each PO DAILY 07/05/18 REVIEW OF SYSTEMS CONSTITUTIONAL: Present: generalized weakness Absent: fever, chills, diaphoresis, malaise, loss of appetite, weight change HEENT: Absent: rhinorrhea, nasal congestion, throat pain, throat swelling, difficulty swallowing, mouth swelling, ear pain, eye pain, visual changes CARDIOVASCULAR: Absent: chest pain, syncope, palpitations, irregular heart rate, lightheadedness , peripheral edema RESPIRATORY: Absent: cough, shortness of breath, dyspnea with exertion, orthopnea, wheezing, stridor, hemoptysis GASTROINTESTINAL: Absent: abdominal pain, abdominal distension, nausea, vomiting, diarrhea, constipation, melena, hematochezia GENITOURINARY: Absent: dysuria, frequency, urgency, hesitancy, hematuria, flank pain, genital pain MUSCULOSKELETAL: Absent: myalgia, arthralgia, joint swelling, back pain, neck pain SKIN: Absent: rash, itching, pallor HEMATOLOGIC/IMMUNOLOGIC: Absent: easy bleeding, easy bruising, lymphadenopathy, frequent infections ENDOCRINE: Absent: unexplained weight gain, unexplained weight loss, heat intolerance, cold intolerance NEUROLOGIC: Absent: headache, focal weakness or paresthesias, dizziness, unsteady gait, seizure, mental status changes, bladder or bowel incontinence PSYCHIATRIC: Absent: anxiety, depression, suicidal or homicidal ideation, hallucinations. PHYSICAL EXAMINATION Vital Signs - 24 hr 11/28/18 11/28/18 18:01 22:01 Temperature 98.3 F Pulse Rate 99 H Respiratory 16 Rate Blood Pressure 116/65 O2 Sat by Pulse 100 100 Oximetry (%) GENERAL: Awake, alert, and fully oriented, in no acute distress. EYES:PEERLA: EOMI no scleral icterus NECK: no JVD: no lymphadenopathy LUNGS: CTA B/L; no rales, rhonchi or wheezing HEART: Regular rate and rhythm, normal S1 and S2 without murmur, rub or gallop. ABDOMEN: Soft, nontender, not distended, normoactive bowel sounds, no guarding, no rebound, no masses. No hepatomegaly or splenomegaly. MUSCULOSKELETAL: Normal range of motion at all joints. No bony deformities or tenderness. No CVA tenderness. EXTREMITIES: warm; well-perfused no clubbing/cyanosis or edema NEUROLOGICAL: Cranial nerves II-XII intact. Normal speech. strength 5/5 BL UE/ LE; sensation intact throughout no facial droop or asymmetry PSYCHIATRIC: Cooperative. Good eye contact. Appropriate mood and affect. SKIN: Warm, dry, normal turgor, no rashes or lesions noted, normal capillary refill. Laboratory Results - last 24 hr 11/28/18 11/28/18 11/28/18 18:06 21:30 23:00 WBC 3.8 L RBC 3.30 L Hgb 10.7 Hct 32.2 L MCV 97.6 H MCH 32.5 MCHC 33.3 RDW 16.2 H Plt Count 257 MPV 7.8 Absolute Neuts (auto) 2.1 Neutrophils % 56.0 Lymphocytes % 36.1 D Monocytes % 4.0 Eosinophils % 3.1 Basophils % 0.8 Nucleated RBC % 0 Sodium 140 Potassium 4.2 Chloride 103 Carbon Dioxide 32 Anion Gap 5 L BUN 24.5 H Creatinine 1.7 H Est GFR (CKD-EPI)AfAm 32.21 Est GFR (CKD-EPI)NonAf 27.80 Random Glucose 102 Calcium 9.2 Total Bilirubin 0.5 AST 41 H ALT 58 Alkaline Phosphatase 76 Total Protein 6.7 Albumin 3.7 Urine Color Yellow Urine Appearance Clear Urine pH 5.0 D Ur Specific [place] 1.015 Urine Protein Negative Urine Glucose (UA) Negative Urine Ketones Negative Urine Blood Negative Urine Nitrite Negative Urine Bilirubin Negative Urine Urobilinogen 0.2 Ur Leukocyte Esterase Trace Urine WBC (Auto) 3 Urine RBC (Auto) 2 Urine Casts (Auto) 4 U Epithel Cells (Auto) 1.2 Urine Bacteria (Auto) 7.8 ASSESSMENT/PLAN: 83 y/o female with PMH of HTN, [place] s/p 2 stents, left sided carotid endarterectomy, gout, rhuematoid arthritis presents to the ED with complaints of increasing weakness/poor PO intake subsequently found to have an FRED #Weakness patient has been having increased weakness which has been getting progressively worse after undergoing a mechanical fall -head and c spine CT were negative -patient is on multiple BP meds which could be contributing to some of this weakness in addition to poor PO intake -currently holding some BP meds -PT consulted #FRED patient was found to have an elevated Cr at 1.7 (baseline 1.1-1.3) -patients daughter endorses that shes been having poor PO intake -currently holding meloxicam and methotrexate -renal US pending -urine lytes and CPK pending -NS @50mls/hr -can consider nephro consult #CAD s/p stents c/w ASA and plavix #HTN patient is on multple BP meds which could be contributing to her weakness and possibly FRED -holding losartan and comb pill -c/w amlodipine and metoprolol -monitor hemodynamics #RA currently holding patients methotrexate in light of FRED -may suggest discussing need with PCP for methotrexate in 83 y.o F/E/N NS @50mls/hr monitor electrolytes sodum controlled diet Problem List - Problem (1) FRED (acute kidney injury) Code(s): N17.9 - ACUTE KIDNEY FAILURE, UNSPECIFIED (2) Weakness Code(s): R53.1 - WEAKNESS (3) HTN (hypertension) Code(s): I10 - ESSENTIAL (PRIMARY) HYPERTENSION Qualifiers: Hypertension type: essential hypertension Qualified Code(s): I10 - Essential (primary) hypertension Visit type - Emergency Visit Emergency Visit: Yes ED Registration Date: 11/29/18 Care time: The patient presented to the Emergency Department on the above date and was hospitalized for further evaluation of their emergent condition. - New Patient This patient is new to me today: Yes Date on this admission: 11/29/18 - Critical Care Critical Care patient: No ATTENDING PHYSICIAN STATEMENT I saw and evaluated the patient. I reviewed the resident's note and discussed the case with the resident. I agree with the resident's findings and plan as documented. SUBJECTIVE: OBJECTIVE: ASSESSMENT AND PLAN:
[2018-11-29 03:56] VITALS: BMI 24.7
[2018-11-29] MEDS: HEPARIN NA (PORCINE) 5,000 UNITS/ML 1ML VIAL SQ SCH ×3 (06:13→22:48)
[2018-11-29 08:02] LABS: ALBUMIN 3.5 g/dl (3.4-5.0); BASO % 0.4 % (0-2.0); BILIRUBIN,TOTAL 0.6 mg/dL (0.2-1); BLOOD UREA NITROGEN 18.2 mg/dL (7-18); CREATININE 1.2 mg/dL (0.55-1.3); EOS % 4.1 % (0-4.5); HEMATOCRIT 31.4 % (32.4-45.2); HEMOGLOBIN 10.6 GM/dL (10.7-15.3); LYMPH % 31.1 % (8-40); MAGNESIUM 2.3 mg/dL (1.8-2.4); MCH 32.4 pg (25.7-33.7); MCHC 33.7 g/dl (32.0-36.0); MEAN CELL VOLUME 96.2 fl (80-96); MEAN PLT VOLUME 8.2 fl (7.5-11.1); MONO % 2.9 % (3.8-10.2); NEUT % 61.5 % (42.8-82.8); PHOSPHOROUS 3.3 mg/dL (2.5-4.9); PLATELET COUNT 259 K/MM3 (134-434); POTASSIUM 3.5 mmol/L (3.5-5.1); RBC 3.26 M/mm3 (3.60-5.2); RDW 16.3 % (11.6-15.6); TOT PROT 6.5 g/dl (6.4-8.2); WHITE BLOOD COUNT 4.6 K/mm3 (4.0-10.0)
--- NOTE | 2018-11-29 08:33 | EKG ---
Test Reason : Blood Pressure : / mmHG Vent. Rate : 077 BPM Atrial Rate : 077 BPM P-R Int : 180 ms QRS Dur : 072 ms QT Int : 390 ms P-R-T Axes : 056 -03 049 degrees QTc Int : 441 ms NORMAL SINUS RHYTHM NORMAL ECG WHEN COMPARED WITH ECG OF 05-JUL-2018 02:07, NO SIGNIFICANT CHANGE WAS FOUND Confirmed by ALEKSEY TRIVEDI MD ([id number]) on 11/29/2018 8:32:47 AM Referred By: Confirmed By:ALEKSEY TRIVEDI MD
[2018-11-29] MEDS: METOPROLOL TARTRATE 25 MG TABLET (FP) PO SCH (09:02)
[2018-11-29] MEDS: CLOPIDOGREL BISULFATE 75 MG TABLET (FP) PO SCH (09:02)
[2018-11-29] MEDS: ASPIRIN COATED 81 MG TABLET.EC PO SCH (09:03)
--- NOTE | 2018-11-29 09:05 | PN ---
Physical Exam: SUBJECTIVE: Patient seen and examined. No chest pain, no SOB, no neck pain. OBJECTIVE: Vital Signs Period Temp Pulse Resp BP Sys/Pereira Pulse Ox Last 24 Hr 97.7 F-98.3 F 72-99 16-18 116-130/65-81 98-100 Vital Signs Temp 98.7 F 11/29/18 22:00 Pulse 71 11/29/18 22:00 Resp 18 11/29/18 22:00 BP 137/79 11/29/18 22:00 Pulse Ox 96 11/29/18 21:00 Intake & Output 11/29/18 11/29/18 11/30/18 11:59 23:59 11:59 Intake Total 550 400 Output Total 602 Balance 550 -202 Weight 61.377 kg Intake: IV 350 Normal Saline - 1,000 ml 350 @ 50 mls/hr IV ASDIR BILLY Rx#:[id number] Oral 200 400 Output: Urine 602 Void 602 Other: Voiding Method Incontinent Incontinent # Unmeasured Voids Void 3 4 Bowel Movement No No Height 1.57 m Body Mass Index (BMI) 24.7 Weight Measurement Method Standing Scale GENERAL: The patient is awake, alert, and fully oriented, in no acute distress. HEAD: Normal with no signs of trauma. EYES: PERRL ENT: oropharynx clear without exudates, moist mucous membranes. NECK:Post neck, mild redness, no obvious swelling, full range of motion, supple. LUNGS: Breath sounds equal, clear to auscultation bilaterally, no wheezes, no crackles HEART: Regular rate and rhythm, S1, S2 ABDOMEN: Soft, nontender, nondistended, normoactive bowel sounds, no guarding EXTREMITIES: Feet b/l rotated inwards, L thigh with healed biopsy scar NEUROLOGICAL: No facial droop, no aphasia, no lateralizing signs. Strength 5/5 globally. Cranial nerves II through XII grossly intact. Normal speech, gait not observed. PSYCH: Pleasant CBC, BMP 11/29/18 06:27 11/29/18 06:27 Laboratory Results - last 24 hr 11/28/18 11/28/18 11/28/18 18:06 21:30 23:00 WBC 3.8 L RBC 3.30 L Hgb 10.7 Hct 32.2 L MCV 97.6 H MCH 32.5 MCHC 33.3 RDW 16.2 H Plt Count 257 MPV 7.8 Absolute Neuts (auto) 2.1 Neutrophils % 56.0 Lymphocytes % 36.1 D Monocytes % 4.0 Eosinophils % 3.1 Basophils % 0.8 Nucleated RBC % 0 Sodium 140 Potassium 4.2 Chloride 103 Carbon Dioxide 32 Anion Gap 5 L BUN 24.5 H Creatinine 1.7 H Est GFR (CKD-EPI)AfAm 32.21 Est GFR (CKD-EPI)NonAf 27.80 Random Glucose 102 Uric Acid Calcium 9.2 Phosphorus Magnesium Total Bilirubin 0.5 AST 41 H ALT 58 Alkaline Phosphatase 76 Creatine Kinase Total Protein 6.7 Albumin 3.7 TSH Urine Color Yellow Urine Appearance Clear Urine pH 5.0 D Ur Specific [place] 1.015 Urine Protein Negative Urine Glucose (UA) Negative Urine Ketones Negative Urine Blood Negative Urine Nitrite Negative Urine Bilirubin Negative Urine Urobilinogen 0.2 Ur Leukocyte Esterase Trace Urine WBC (Auto) 3 Urine RBC (Auto) 2 Urine Casts (Auto) 4 U Epithel Cells (Auto) 1.2 Urine Bacteria (Auto) 7.8 Ur Random Creatinine Ur Random Sodium 11/29/18 11/29/18 11/29/18 02:10 02:10 06:27 WBC 4.6 RBC 3.26 L Hgb 10.6 L Hct 31.4 L MCV 96.2 H MCH 32.4 MCHC 33.7 RDW 16.3 H Plt Count 259 MPV 8.2 Absolute Neuts (auto) 2.8 Neutrophils % 61.5 Lymphocytes % 31.1 Monocytes % 2.9 L Eosinophils % 4.1 Basophils % 0.4 Nucleated RBC % 0 Sodium Potassium Chloride Carbon Dioxide Anion Gap BUN Creatinine Est GFR (CKD-EPI)AfAm Est GFR (CKD-EPI)NonAf Random Glucose Uric Acid Calcium Phosphorus Magnesium Total Bilirubin AST ALT Alkaline Phosphatase Creatine Kinase Total Protein Albumin TSH Urine Color Urine Appearance Urine pH Ur Specific [place] Urine Protein Urine Glucose (UA) Urine Ketones Urine Blood Urine Nitrite Urine Bilirubin Urine Urobilinogen Ur Leukocyte Esterase Urine WBC (Auto) Urine RBC (Auto) Urine Casts (Auto) U Epithel Cells (Auto) Urine Bacteria (Auto) Ur Random Creatinine 15.0 L Ur Random Sodium 19 L 11/29/18 11/29/18 06:27 06:27 WBC RBC Hgb Hct MCV MCH MCHC RDW Plt Count MPV Absolute Neuts (auto) Neutrophils % Lymphocytes % Monocytes % Eosinophils % Basophils % Nucleated RBC % Sodium 145 Potassium 3.5 Chloride 108 H Carbon Dioxide 31 Anion Gap 6 L BUN 18.2 H Creatinine 1.2 Est GFR (CKD-EPI)AfAm 49.08 Est GFR (CKD-EPI)NonAf 42.35 Random Glucose 89 Uric Acid 5.0 Calcium 9.0 Phosphorus 3.3 Magnesium 2.3 Total Bilirubin 0.6 AST 37 ALT 54 Alkaline Phosphatase 78 Creatine Kinase 109 Total Protein 6.5 Albumin 3.5 TSH 1.63 Urine Color Urine Appearance Urine pH Ur Specific [place] Urine Protein Urine Glucose (UA) Urine Ketones Urine Blood Urine Nitrite Urine Bilirubin Urine Urobilinogen Ur Leukocyte Esterase Urine WBC (Auto) Urine RBC (Auto) Urine Casts (Auto) U Epithel Cells (Auto) Urine Bacteria (Auto) Ur Random Creatinine Ur Random Sodium Active Medications Generic Name Dose Route Start Last Admin Trade Name Freq PRN Reason Stop Dose Admin Aspirin 81 mg 11/29/18 10:00 11/29/18 09:03 Ecotrin - PO 81 mg DAILY [facility] Administration Atorvastatin Calcium 10 mg 11/29/18 22:00 Lipitor - PO HS BILLY Clopidogrel Bisulfate 75 mg 11/29/18 10:00 11/29/18 09:02 Plavix - PO 75 mg DAILY BILLY Administration Donepezil HCl 5 mg 11/29/18 22:00 Aricept - PO HS BILLY Heparin Sodium (Porcine) 5,000 unit 11/29/18 06:00 11/29/18 06:13 Heparin - SQ 5,000 unit TID BILLY Administration Sodium Chloride 1,000 mls @ 50 mls/hr 11/29/18 01:45 11/29/18 02:26 Normal Saline - IV 11/30/18 01:36 50 mls/hr ASD[facility] Administration Metoprolol Tartrate 25 mg 11/29/18 10:00 11/29/18 09:02 Lopressor - PO 25 mg DAILY BILLY Administration Non-Formulary Medication 1 each 11/29/18 10:00 Oxybutynin [Oxytrol] TD DAILY [facility] Ambulatory Orders Aspirin Coated [Ecotrin -] 81 mg PO DAILY 04/16/12 Amlodipine/Valsartan/Hcthiazid [Ichks-Rdvup-Pbga 10-160-25 mg] 10 mg PO DAILY Cholecalciferol (Vitamin D3) [Vitamin D3] 1,000 unit PO DAILY 11/14/15 Cyanocobalamin [Vitamin B12 -] 1,000 mcg PO DAILY 11/14/15 Donepezil HCl [Aricept -] 5 mg PO DAILY 12/04/17 Imipramine HCl 50 mg PO HS 12/04/17 Meloxicam 15 mg PO DAILY 12/04/17 Allopurinol [Zyloprim -] 100 mg PO DAILY 07/05/18 Atorvastatin Ca [Lipitor] 40 mg PO HS 07/05/18 Clopidogrel Bisulfate [Plavix] 75 mg PO DAILY 07/05/18 Losartan Potassium 50 mg PO DAILY 07/05/18 Metoprolol Tartrate 50 mg PO DAILY 07/05/18 Oxybutynin [Oxytrol] 5 each PO DAILY 07/05/18 Cyclosporine [Restasis] 1 each OP BID 11/29/18 Current Medications Aspirin (Ecotrin -) 81 mg PO DAILY [facility] Last Admin: 11/29/18 09:03 Dose: 81 mg Atorvastatin Calcium (Lipitor -) 10 mg PO HS [facility] Clopidogrel Bisulfate (Plavix -) 75 mg PO DAILY [facility] Last Admin: 11/29/18 09:02 Dose: 75 mg Donepezil HCl (Aricept -) 5 mg PO HS [facility] Heparin Sodium (Porcine) (Heparin -) 5,000 unit SQ TID [facility] Last Admin: 11/29/18 06:13 Dose: 5,000 unit Sodium Chloride (Normal Saline -) 1,000 mls @ 50 mls/hr IV ASDIR [facility] Stop: 11/30/18 01:36 Last Admin: 11/29/18 02:26 Dose: 50 mls/hr Metoprolol Tartrate (Lopressor -) 25 mg PO DAILY [facility] Last Admin: 11/29/18 09:02 Dose: 25 mg Non-Formulary Medication (Oxybutynin [Oxytrol]) 1 each TD DAILY [facility] ASSESSMENT/PLAN: 83 y/o female with PMH of HTN, [place] s/p 2 stents, left sided carotid endarterectomy, gout, rhuematoid arthritis presents to the ED with complaints of increasing weakness/poor PO intake subsequently found to have an FRED #Weakness -Generalized weakness, likely in setting of poor PO intake, able to tolerate a diet -Weakness also compounded by medications- need medrec -Improved on fluids #S/p fall -Likely mechanical -head and c spine CT were negative -patient is on multiple BP meds which could be contributing to some of this weakness in addition to poor PO intake -currently holding some BP meds pending confirmation -PT consulted #FRED patient was found to have an elevated Cr at 1.7 (baseline 1.1-1.3) -patients daughter endorses that shes been having poor PO intake -currently holding meloxicam and methotrexate, allopurinol -renal US pending -urine lytes and CPK pending -NS @50mls/hr -can consider nephro consult #CAD s/p stents Pt reports stents in November and dec 2017 c/w ASA and plavix #HTN patient is on multple BP meds which could be contributing to her weakness and possibly FRED -holding losartan and comb pill -c/w amlodipine and metoprolol -monitor hemodynamics #RA currently holding patients methotrexate in light of FRED -may suggest discussing need with PCP for methotrexate in 83 y.o #Dispo Pt walked 25 feet with safety risk Per CW- refusing SNF, does not have [employer], and would want to return home to family assistance Visit type - Emergency Visit Emergency Visit: Yes ED Registration Date: 11/29/18 Care time: The patient presented to the Emergency Department on the above date and was hospitalized for further evaluation of their emergent condition. - New Patient This patient is new to me today: Yes Date on this admission: 11/29/18 - Critical Care Critical Care patient: No - Discharge Referral Referred to [facility] No ATTENDING PHYSICIAN STATEMENT I saw and evaluated the patient. I reviewed the resident's note and discussed the case with the resident. I agree with the resident's findings and plan as documented. SUBJECTIVE: OBJECTIVE: ASSESSMENT AND PLAN:
[2018-11-29] MEDS ORDERED: OXYBUTYNIN TD SCH (10:00)
--- NOTE | 2018-11-29 10:22 | PN ---
Teaching Attending Note Name of Resident: Kaitlyn Moore ATTENDING PHYSICIAN STATEMENT I saw and evaluated the patient. I reviewed the resident's note and discussed the case with the resident. I agree with the resident's findings and plan as documented. SUBJECTIVE: Ms Ayers says she is feeling much better today than she did at home. Complains of weakness but this is chronic. No cp, sob, n/v. OBJECTIVE: Last Vital Signs Temp Pulse Resp BP Pulse Ox 36.6 C 79 18 124/81 95 11/29/18 07:54 11/29/18 07:54 11/29/18 07:55 11/29/18 07:54 11/29/18 07:55 Gen: nad Pulm: ctab w/o w/r/r CV: rrr w/o m/r/g Abd: +bs, s/nt/nd Ext: no c/c/e CBC, BMP 11/29/18 06:27 11/29/18 06:27 ASSESSMENT AND PLAN: Problem List - Problems (1) FRED (acute kidney injury) Assessment/Plan: -improving with hydration -renal ultrasound reviewed -suspect secondary to dehydration, antihypertensives, and NSAIDs -continue hydration currently -follow up Dr López's recommendations -check again in am Code(s): N17.9 - ACUTE KIDNEY FAILURE, UNSPECIFIED (2) Weakness Assessment/Plan: -multifactorial but she states is chronic -PT consult Code(s): R53.1 - WEAKNESS (3) HTN (hypertension) Assessment/Plan: -well controlled and currently only on metoprolol -monitor today, may elevate and need to add back antihypertensives -will confirm medications, patient is listed to be on both losartan and a combination of amlodipine/valsartan/HCTZ and suspect this is inaccurate -if on combination medication, will stop thiazide diuretic Code(s): I10 - ESSENTIAL (PRIMARY) HYPERTENSION Qualifiers: Hypertension type: essential hypertension Qualified Code(s): I10 - Essential (primary) hypertension (4) Rheumatoid arthritis Assessment/Plan: -stable -will restart methotrexate when creatinine normalizes -stop meloxicam if tolerated Code(s): M06.9 - RHEUMATOID ARTHRITIS, UNSPECIFIED (5) Anemia Assessment/Plan: -minimal -will check iron and vitamin labs -patient does not need epogen at this time Code(s): D64.9 - ANEMIA, UNSPECIFIED Qualifiers: Anemia type: unspecified type Qualified Code(s): D64.9 - Anemia, unspecified (6) Gout Assessment/Plan: -not in exacerbation -will confirm allopurinol dose Code(s): M10.9 - GOUT, UNSPECIFIED
--- NOTE | 2018-11-29 13:30 | CONSULT ---
Consult Consult Specialty:: Nephrology Reason for Consultation:: FRED - History of Present Illness Chief Complaint: s/p fall History of Present Illness: Pt is an 83 year old female with pmhx of htn and arthritis who presents to the ER after a fall. She was found to have FRED and I was called to evaluate her. She denies shortness of breath. She denies palpitations. She denies fevers or chills. She denies dysuria or hematuria. She denies history of ckd. She takes advil for pain regularly. She feels that the weakness is better today. Her renal function improved with fluids. - History Source History Provided By: Patient, Medical Record - Past Medical History ENGINEERING ADMINISTRATOR: Yes: Dementia (, mild) Cardio/Vascular: Yes: HTN Renal/: Yes: Other (overactive bladder) ...: No Rheumatology: Yes: Rheumatoid Arthritis, Other (myositis) - Past Surgical History Past Surgical History: Yes: Carotid Endarterectomy (left side) - Alcohol/Substance Use Hx Alcohol Use: No - Smoking History Smoking history: Never smoked Have you smoked in the past 12 months: No Aproximately how many cigarettes per day: 0 - Social History Occupation: former home health aide Home Medications - Allergies Allergies/Adverse Reactions: Allergies Allergy/AdvReac Type Severity Reaction Status Date / Time No Known Drug Allergies Allergy Intermediate Verified 11/28/18 18:00 - Home Medications Home Medications: Ambulatory Orders Aspirin Coated [Ecotrin -] 81 mg PO DAILY 04/16/12 Amlodipine/Valsartan/Hcthiazid [Cauzs-Ghscn-Cgri 10-160-25 mg] 10 mg PO DAILY Cholecalciferol (Vitamin D3) [Vitamin D3] 1,000 unit PO DAILY 11/14/15 Cyanocobalamin [Vitamin B12 -] 1,000 mcg PO DAILY 11/14/15 Donepezil HCl [Aricept -] 5 mg PO DAILY 12/04/17 Imipramine HCl 50 mg PO HS 12/04/17 Meloxicam 15 mg PO DAILY 12/04/17 Allopurinol [Zyloprim -] 100 mg PO DAILY 07/05/18 Atorvastatin Ca [Lipitor] 40 mg PO HS 07/05/18 Clopidogrel Bisulfate [Plavix] 75 mg PO DAILY 07/05/18 Losartan Potassium 50 mg PO DAILY 07/05/18 Metoprolol Tartrate 50 mg PO DAILY 07/05/18 Oxybutynin [Oxytrol] 5 each PO DAILY 07/05/18 Cyclosporine [Restasis] 1 each OP BID 11/29/18 Family Disease History - Family Disease History Family History: Denies Review of Systems - Review of Systems Constitutional: reports: Malaise. denies: Chills, Fever Eyes: reports: No Symptoms HENT: reports: No Symptoms Cardiovascular: reports: No Symptoms Respiratory: reports: No Symptoms Gastrointestinal: reports: No Symptoms Genitourinary: reports: No Symptoms Musculoskeletal: reports: No Symptoms Integumentary: reports: No Symptoms Neurological: reports: No Symptoms Endocrine: reports: No Symptoms Hematology/Lymphatic: reports: No Symptoms Psychiatric: reports: No Symptoms Physical Exam Vital Signs: Vital Signs Temperature 97.9 F 11/29/18 07:54 Pulse Rate 79 11/29/18 07:54 Respiratory Rate 18 11/29/18 07:55 Blood Pressure 124/81 11/29/18 07:54 O2 Sat by Pulse Oximetry (%) 95 11/29/18 07:55 Constitutional: Yes: Calm Eyes: Yes: Conjunctiva Clear HENT: Yes: Atraumatic Neck: Yes: Supple Cardiovascular: Yes: S1, S2 Respiratory: Yes: CTA Bilaterally Gastrointestinal: Yes: Soft Renal/: Yes: WNL Musculoskeletal: Yes: WNL Extremities: Yes: WNL Edema: No Integumentary: Yes: WNL Neurological: Yes: Oriented Psychiatric: Yes: Oriented Labs: CBC, BMP 11/29/18 06:27 11/29/18 06:27 Laboratory Tests 11/28/18 11/28/18 11/28/18 18:06 21:30 23:00 WBC 3.8 L Hgb Creatinine 1.7 H Creatine Kinase Urine Protein Negative Urine Blood Negative Ur Random Sodium 11/29/18 11/29/18 11/29/18 02:10 06:27 06:27 WBC 4.6 Hgb 10.6 L Creatinine 1.2 Creatine Kinase Urine Protein Urine Blood Ur Random Sodium 19 L 11/29/18 06:27 WBC Hgb Creatinine Creatine Kinase 109 Urine Protein Urine Blood Ur Random Sodium Imaging - Results Ultrasound: Report Reviewed Problem List - Problems (1) FRED (acute kidney injury) Code(s): N17.9 - ACUTE KIDNEY FAILURE, UNSPECIFIED (2) HTN (hypertension) Code(s): I10 - ESSENTIAL (PRIMARY) HYPERTENSION Qualifiers: Hypertension type: essential hypertension Qualified Code(s): I10 - Essential (primary) hypertension Assessment/Plan Current Medications Generic Name Dose Route Start Last Admin Trade Name Freq PRN Reason Stop Dose Admin Aspirin 81 mg 11/29/18 10:00 11/29/18 09:03 Ecotrin - PO 81 mg DAILY [facility]Y Administration Atorvastatin Calcium 10 mg 11/29/18 22:00 Lipitor - PO HS BILLY Clopidogrel Bisulfate 75 mg 11/29/18 10:00 11/29/18 09:02 Plavix - PO 75 mg DAILY [facility]Y Administration Donepezil HCl 5 mg 11/29/18 22:00 Aricept - PO HS B[facility]Y Heparin Sodium (Porcine) 5,000 unit 11/29/18 06:00 11/29/18 06:13 Heparin - SQ 5,000 unit TID [facility]Y Administration Sodium Chloride 1,000 mls @ 50 mls/hr 11/29/18 01:45 11/29/18 02:26 Normal Saline - IV 11/30/18 01:36 50 mls/hr ASDIR [facility]Y Administration Metoprolol Tartrate 25 mg 11/29/18 10:00 11/29/18 09:02 Lopressor - PO 25 mg DAILY [facility] Administration Non-Formulary Medication 1 each 11/29/18 10:00 Oxybutynin [Oxytrol] TD DAILY [facility]Y Non-Formulary Medication 1 each 11/29/18 10:00 Cyclosporine [Restasis] OP BID BILLY Impression 1. FRED 2. s/p fall 3. arthritis 4. HTN 5. renal cyst Plan - renal function is improving - renal ultrasound reviewed - urine sodium is low - fred likely from prerenal disease - cont hydration - avoid nsaids, recommend that she not restart meloxicam and not take advil - repeat labs in am
[2018-11-29] MEDS ORDERED: DONEPEZIL HCL 5 MG TABLET (FP) PO SCH (22:00)
[2018-11-29] MEDS ORDERED: ATORVASTATIN CA 10 MG TABLET (FP) PO SCH (22:00)
[2018-11-29] MEDS: CYCLOSPORINE OU SCH (22:47)
[2018-11-30] MEDS ORDERED: PT OWN MED DRAWER 7, Y5N ONE ×2 (01:40→10:19)
[2018-11-30] MEDS: HEPARIN NA (PORCINE) 5,000 UNITS/ML 1ML VIAL SQ SCH ×2 (06:13→14:42)
--- NOTE | 2018-11-30 09:22 | PN ---
Physical Exam: SUBJECTIVE: Patient seen and examined OBJECTIVE: Vital Signs Period Temp Pulse Resp BP Sys/Pereira Pulse Ox Last 24 Hr 97.7 F-99.0 F 63-73 18-20 115-141/70-79 96 GENERAL: The patient is awake, alert, and fully oriented, in no acute distress. HEAD: Normal with no signs of trauma. EYES: PERRL, extraocular movements intact, sclera anicteric, conjunctiva clear. No ptosis. ENT: Ears normal, nares patent, oropharynx clear without exudates, moist mucous membranes. NECK: Trachea midline, full range of motion, supple. LUNGS: Breath sounds equal, clear to auscultation bilaterally, no wheezes, no crackles, no accessory muscle use. HEART: Regular rate and rhythm, S1, S2 without murmur, rub or gallop. ABDOMEN: Soft, nontender, nondistended, normoactive bowel sounds, no guarding, no rebound, no hepatosplenomegaly, no masses. EXTREMITIES: 2+ pulses, warm, well-perfused, no edema. NEUROLOGICAL: Cranial nerves II through XII grossly intact. Normal speech, gait not observed. PSYCH: Normal mood, normal affect. SKIN: Warm, dry, normal turgor, no rashes or lesions noted Active Medications Generic Name Dose Route Start Last Admin Trade Name Freq PRN Reason Stop Dose Admin Aspirin 81 mg 11/29/18 10:00 11/29/18 09:03 Ecotrin - PO 81 mg DAILY [facility]Y Administration Atorvastatin Calcium 10 mg 11/29/18 22:00 11/29/18 22:47 Lipitor - PO 10 mg HS [facility]Y Administration Clopidogrel Bisulfate 75 mg 11/29/18 10:00 11/29/18 09:02 Plavix - PO 75 mg DAILY [facility] Administration Donepezil HCl 5 mg 11/29/18 22:00 11/29/18 22:47 Aricept - PO 5 mg HS [facility]Y Administration Heparin Sodium (Porcine) 5,000 unit 11/29/18 06:00 11/30/18 06:13 Heparin - SQ 5,000 unit TID [facility]Y Administration Metoprolol Tartrate 25 mg 11/29/18 10:00 11/29/18 09:02 Lopressor - PO 25 mg DAILY [facility] Administration Non-Formulary Medication 1 each 11/29/18 10:00 Oxybutynin [Oxytrol] TD DAILY [facility]Y Non-Formulary Medication 0 each 11/29/18 22:00 11/29/18 22:47 Cyclosporine [Restasis] OU 1 each BID [facility]Y Administration ASSESSMENT/PLAN: ATTENDING PHYSICIAN STATEMENT I saw and evaluated the patient. I reviewed the resident's note and discussed the case with the resident. I agree with the resident's findings and plan as documented. SUBJECTIVE: OBJECTIVE: ASSESSMENT AND PLAN:
[2018-11-30] MEDS: ASPIRIN COATED 81 MG TABLET.EC PO SCH (10:23)
[2018-11-30] MEDS: CLOPIDOGREL BISULFATE 75 MG TABLET (FP) PO SCH (10:23)
[2018-11-30] MEDS: METOPROLOL TARTRATE 25 MG TABLET (FP) PO SCH (10:23)
[2018-11-30] MEDS: CYCLOSPORINE OU SCH (10:24)
[2018-11-30 10:31] VITALS: BP 111/74
[2018-11-30 10:57] LABS: BASO % 0.9 % (0-2.0); EOS % 6.8 % (0-4.5); HEMATOCRIT 33.9 % (32.4-45.2); HEMOGLOBIN 11.1 GM/dL (10.7-15.3); LYMPH % 41.3 % (8-40); MCH 32.1 pg (25.7-33.7); MCHC 32.8 g/dl (32.0-36.0); MEAN CELL VOLUME 97.7 fl (80-96); MEAN PLT VOLUME 8.5 fl (7.5-11.1); MONO % 3.7 % (3.8-10.2); NEUT % 47.3 % (42.8-82.8); RBC 3.47 M/mm3 (3.60-5.2); RDW 16.5 % (11.6-15.6); WHITE BLOOD COUNT 4.2 K/mm3 (4.0-10.0)
[2018-11-30 11:14] LABS: ALBUMIN 3.5 g/dl (3.4-5.0); BILIRUBIN,TOTAL 0.6 mg/dL (0.2-1); BLOOD UREA NITROGEN 9.7 mg/dL (7-18); CALCIUM 9.3 mg/dL (8.5-10.1); PHOSPHOROUS 2.5 mg/dL (2.5-4.9); POTASSIUM 3.6 mmol/L (3.5-5.1); TOT PROT 6.7 g/dl (6.4-8.2)
[2018-11-30 11:22] LABS: PLATELET COUNT 279 K/MM3 (134-434)
--- NOTE | 2018-11-30 13:45 | PN ---
Progress Note, Physician History of Present Illness: Pt seen and examined at bedside. She is awake and alert. She denies shortness of breath. She is asking to go home. - Current Medication List Current Medications: Active Medications Aspirin (Ecotrin -) 81 mg PO DAILY [facility] Last Admin: 11/30/18 10:23 Dose: 81 mg Atorvastatin Calcium (Lipitor -) 10 mg PO HS [facility] Last Admin: 11/29/18 22:47 Dose: 10 mg Clopidogrel Bisulfate (Plavix -) 75 mg PO DAILY [facility] Last Admin: 11/30/18 10:23 Dose: 75 mg Donepezil HCl (Aricept -) 5 mg PO HS [facility] Last Admin: 11/29/18 22:47 Dose: 5 mg Heparin Sodium (Porcine) (Heparin -) 5,000 unit SQ TID [facility] Last Admin: 11/30/18 06:13 Dose: 5,000 unit Metoprolol Tartrate (Lopressor -) 25 mg PO DAILY [facility] Last Admin: 11/30/18 10:23 Dose: 25 mg Non-Formulary Medication (Oxybutynin [Oxytrol]) 1 each TD DAILY [facility] Non-Formulary Medication (Cyclosporine [Restasis]) 0 each OU BID [facility] Last Admin: 11/30/18 10:24 Dose: 1 each - Objective Vital Signs: Vital Signs Temperature 97.7 F 11/30/18 05:46 Pulse Rate 72 11/30/18 05:46 Respiratory Rate 18 11/30/18 10:30 Blood Pressure 111/74 11/30/18 10:30 O2 Sat by Pulse Oximetry (%) 96 11/30/18 09:00 Constitutional: Yes: Calm Eyes: Yes: Conjunctiva Clear HENT: Yes: Atraumatic Neck: Yes: Supple Cardiovascular: Yes: S1, S2 Respiratory: Yes: CTA Bilaterally Gastrointestinal: Yes: Soft Genitourinary: Yes: WNL Musculoskeletal: Yes: WNL Edema: No Neurological: Yes: Oriented Psychiatric: Yes: Oriented Labs: CBC, BMP 11/30/18 09:55 11/30/18 09:55 Problem List - Problems (1) DEDE (acute kidney injury) Code(s): N17.9 - ACUTE KIDNEY FAILURE, UNSPECIFIED (2) HTN (hypertension) Code(s): I10 - ESSENTIAL (PRIMARY) HYPERTENSION Qualifiers: Hypertension type: essential hypertension Qualified Code(s): I10 - Essential (primary) hypertension Assessment/Plan Current Medications Generic Name Dose Route Start Last Admin Trade Name Pal PRN Reason Stop Dose Admin Aspirin 81 mg 11/29/18 10:00 11/30/18 10:23 Ecotrin - PO 81 mg DAILY [facility]Y Administration Atorvastatin Calcium 10 mg 11/29/18 22:00 11/29/18 22:47 Lipitor - PO 10 mg HS [facility]Y Administration Clopidogrel Bisulfate 75 mg 11/29/18 10:00 11/30/18 10:23 Plavix - PO 75 mg DAILY [facility] Administration Donepezil HCl 5 mg 11/29/18 22:00 11/29/18 22:47 Aricept - PO 5 mg HS [facility] Administration Heparin Sodium (Porcine) 5,000 unit 11/29/18 06:00 11/30/18 06:13 Heparin - SQ 5,000 unit TID [facility] Administration Metoprolol Tartrate 25 mg 11/29/18 10:00 11/30/18 10:23 Lopressor - PO 25 mg DAILY [facility] Administration Non-Formulary Medication 1 each 11/29/18 10:00 Oxybutynin [Oxytrol] TD DAILY [facility] Non-Formulary Medication 0 each 11/29/18 22:00 11/30/18 10:24 Cyclosporine [Restasis] OU 1 each BID [facility] Administration Impression 1. DEDE 2. s/p fall 3. arthritis 4. HTN 5. renal cyst Plan - renal function improved - encourage PO intake - discussed plan with pt and family - dede likely from prerenal disease - avoid nsaids, recommend that she not restart meloxicam and not take advil
[2018-11-30 14:33] VITALS: PULSE 73; TEMP 98.2
--- NOTE | 2018-11-30 14:50 | PN ---
Teaching Attending Note Name of Resident: Kaitlyn Moore ATTENDING PHYSICIAN STATEMENT I saw and evaluated the patient. I reviewed the resident's note and discussed the case with the resident. I agree with the resident's findings and plan as documented. Please refer to discharge summary for full course but in short Ms Ayers presented with weakness and falls. She was found to be hypotensive and with FRED. Her NSAIDs were held, as were here blood pressure medications except metoprolol. She had a renal ultrasound which was normal. She was seen by nephrology and hydrated with IVF. Her renal function improved. Her blood pressure was observed and she was found to have a max SBP of 141. Because of this her metoprolol will be continued and her losartan will be added back. However her amlodipine will be held at this time. She is to follow up with Dr Le in 1 week for a blood pressure check to see if her medications need to be readjusted. Problem List - Problems (1) FRED (acute kidney injury) Code(s): N17.9 - ACUTE KIDNEY FAILURE, UNSPECIFIED (2) Weakness Code(s): R53.1 - WEAKNESS (3) HTN (hypertension) Code(s): I10 - ESSENTIAL (PRIMARY) HYPERTENSION Qualifiers: Hypertension type: essential hypertension Qualified Code(s): I10 - Essential (primary) hypertension (4) Rheumatoid arthritis Code(s): M06.9 - RHEUMATOID ARTHRITIS, UNSPECIFIED (5) Anemia Code(s): D64.9 - ANEMIA, UNSPECIFIED Qualifiers: Anemia type: unspecified type Qualified Code(s): D64.9 - Anemia, unspecified (6) Gout Code(s): M10.9 - GOUT, UNSPECIFIED
--- NOTE | 2018-11-30 16:34 | DS ---
Physical Exam: SUBJECTIVE: Patient seen and examined. Laying comfortably in bed, requesting to go home. Denies pain, SOB or chest pain. OBJECTIVE: Vital Signs Period Temp Pulse Resp BP Sys/Pereira Pulse Ox Last 24 Hr 97.7 F-99.0 F 63-73 18-20 111-141/73-79 96-96 Vital Signs Temp 98.2 F 11/30/18 14:30 Pulse 73 11/30/18 14:30 Resp 20 11/30/18 14:30 BP 111/74 11/30/18 10:30 Pulse Ox 96 11/30/18 09:00 PHYSICAL EXAM GENERAL: The patient is awake, alert, and fully oriented, in no acute distress. HEAD: Normal with no signs of trauma. EYES: PERRL, extraocular movements intact, sclera anicteric, conjunctiva clear. ENT: moist mucous membranes. LUNGS: Breath sounds equal, clear to auscultation bilaterally, no wheezes, no crackles HEART: S1, S2 ABDOMEN: Soft, nontender, nondistended, normoactive bowel sounds EXTREMITIES: 2+ pulses, warm, well-perfused, no edema. NEUROLOGICAL: Cranial nerves II through XII grossly intact. Normal speech, gait not observed. LABS Laboratory Results - last 24 hr 11/30/18 11/30/18 09:55 09:55 WBC 4.2 RBC 3.47 L Hgb 11.1 Hct 33.9 MCV 97.7 H MCH 32.1 MCHC 32.8 RDW 16.5 H Plt Count 279 MPV 8.5 Absolute Neuts (auto) 2.0 Neutrophils % 47.3 D Lymphocytes % 41.3 H D Monocytes % 3.7 L Eosinophils % 6.8 H Basophils % 0.9 Nucleated RBC % 0 Sodium 143 Potassium 3.6 Chloride 107 Carbon Dioxide 32 Anion Gap 4 L BUN 9.7 Creatinine 1.0 Est GFR (CKD-EPI)AfAm 61.19 Est GFR (CKD-EPI)NonAf 52.79 Random Glucose 133 H Calcium 9.3 Phosphorus 2.5 Magnesium 2.0 Total Bilirubin 0.6 AST 57 H ALT 70 H Alkaline Phosphatase 82 Total Protein 6.7 Albumin 3.5 Ambulatory Orders Aspirin Coated [Ecotrin -] 81 mg PO DAILY 04/16/12 Cyanocobalamin [Vitamin B12 -] 1,000 mcg PO DAILY 11/14/15 Donepezil HCl [Aricept -] 5 mg PO DAILY 12/04/17 Imipramine HCl 50 mg PO HS 12/04/17 Allopurinol [Zyloprim -] 100 mg PO DAILY 07/05/18 Atorvastatin Ca [Lipitor] 40 mg PO HS 07/05/18 Clopidogrel Bisulfate [Plavix] 75 mg PO DAILY 07/05/18 Losartan Potassium 50 mg PO DAILY 07/05/18 Oxybutynin [Oxytrol] 5 each PO DAILY 07/05/18 Cyclosporine [Restasis] 1 drop OU HS 11/29/18 Budesonide/Formeterol Fumarate [SYMBICORT 160/4.5mcg -] 1 inh PO BID 11/30/18 Famotidine [Pepcid] 40 mg PO DAILY 11/30/18 Folic Acid 1 mg PO DAILY 11/30/18 Methotrexate [Mexate -] 20 mg PO WEEKLY 11/30/18 Metoprolol Succinate 25 mg PO DAILY 11/30/18 HOSPITAL COURSE: Date of Admission:11/29/18 Date of Discharge: 11/30/18 83 y/o female with PMH of HTN, SC s/p 2 stents, left sided carotid endarterectomy, gout, rhuematoid arthritis presents to the ED with complaints of increasing weakness/poor PO intake and recent fall, subsequently found to have an FRED. Pt was gently rehydrated, with resolution of her FRED. Pt was found to be on multiple blood pressure medications with relatively low blood pressures initially but maintained SBPs in the 140s. Losartan was held initially and metoprolol continued. At discharge, losartan was added back along with lopressor, but amlodipine was held pending evaluation by her PCP. She was assessed by PT and found to be unstable on her feet and recommended for a SNF. The family however declined having her in a SNF, and offered to provide care at home. Pt was discharged home after discussion with the family for increased supervision of pt with ambulation to avoid mechanical falls. Minutes to complete discharge: 38 Discharge Summary Reason For Visit: ACUTE KIDNEY INJURY, WEAKNESS Condition: Stable - Instructions Diet, Activity, Other Instructions: You came in after a fall. You could have fallen because you were unstable on your feet despite using the cane as support, or because you had not been eating and were weak We gave you intravenous fluids and you improved You had some damage to your kidneys probably due to dehydration that has improved Medications Stop taking the Meloxicam as it can damage your kidneys and increase your risk for a bleed We also stopped you from taking losartan, while your kidneys recovered Follow up with your primary care to determine if you will continue Losartan You are also taking allopurinol and methotrexate Continue your other medications as prescribed Follow up Follow up with your visitor services coordinator about allopurinol and methotrexate as they could also affect the kidneys Follow up for a repeat blood test BMP to check your kidneys in one week Recommendations Physical therapy assessed you and recommended you for a Short Term Nursing Facility as you needed assistance with ambulation but you declined You are at risk of more falls, you will need increased support and watchfulness especially when you walk You may also need supervision on eating so you do not get dehydrated If you think your symptoms are not gettig better with increasing falls, weakness , shortness or breath or chest pain, please return to the nearest emergency room Referrals: Amanuel Le MD [Primary Care Provider] - 1 Week Disposition: VNS/HOME HEALTH CARE - Home Medications Comprehensive Discharge Medication List: Ambulatory Orders Aspirin Coated [Ecotrin -] 81 mg PO DAILY 04/16/12 Cyanocobalamin [Vitamin B12 -] 1,000 mcg PO DAILY 11/14/15 Donepezil HCl [Aricept -] 5 mg PO DAILY 12/04/17 Imipramine HCl 50 mg PO HS 12/04/17 Allopurinol [Zyloprim -] 100 mg PO DAILY 07/05/18 Atorvastatin Ca [Lipitor] 40 mg PO HS 07/05/18 Clopidogrel Bisulfate [Plavix] 75 mg PO DAILY 07/05/18 Losartan Potassium 50 mg PO DAILY 07/05/18 Oxybutynin [Oxytrol] 5 each PO DAILY 07/05/18 Cyclosporine [Restasis] 1 drop OU HS 11/29/18 Budesonide/Formeterol Fumarate [SYMBICORT 160/4.5mcg -] 1 inh PO BID 11/30/18 Famotidine [Pepcid] 40 mg PO DAILY 11/30/18 Folic Acid 1 mg PO DAILY 11/30/18 Methotrexate [Mexate -] 20 mg PO WEEKLY 11/30/18 Metoprolol Succinate 25 mg PO DAILY 11/30/18 This patient is new to me today: No Emergency Visit: Yes ED Registration Date: 11/29/18 Care time: The patient presented to the Emergency Department on the above date and was hospitalized for further evaluation of their emergent condition. Critical Care patient: No - Discharge Referral Referred to [facility] No ATTENDING PHYSICIAN STATEMENT I saw and evaluated the patient. I reviewed the resident's note and discussed the case with the resident. I agree with the resident's findings and plan as documented. SUBJECTIVE: OBJECTIVE: ASSESSMENT AND PLAN:
== END 2018-11-30 14:43 | disposition home health service (06) | DRG 684 ==
LOC: JER 17:57 → JERBED 11-29 → J7W 11-29 03:13
PROVIDERS: ADMIT Internal Medicine; ATTEND Internal Medicine
DX: N17.9 Acute kidney failure, unspecified (principal); I10 Essential (primary) hypertension; M06.9 Rheumatoid arthritis, unspecified; F03.90 Unspecified dementia, unspecified severity, without behavioral disturbance, psychotic disturbance, mood disturbance, and anxiety; M54.2 Cervicalgia; S09.90XA Unspecified injury of head, initial encounter; D64.9 Anemia, unspecified; R53.1 Weakness; N28.1 Cyst of kidney, acquired; W08.XXXA Fall from other furniture, initial encounter; Y93.89 Activity, other specified; Y92.018 Other place in single-family (private) house as the place of occurrence of the external cause; Y99.8 Other external cause status; M10.9 Gout, unspecified; N32.81 Overactive bladder; I25.2 Old myocardial infarction; Z95.5 Presence of coronary angioplasty implant and graft
CPT/HCPCS: 36415; 70450-TC; 72125-TC; 76775-TC; 80053; 81003; 82550; 82565; 83735; 84100; 84300; 84443; 84550; 85025; 93005; 93010; 97116-GP; 97162-GP; 99285-25; J1644; J7030